=== PATIENT | male | born 1935 | race Caucasian/White ===

== ENCOUNTER → 2016-07-13 | Outpatient (CLI) | payer OTHER ==
[~2016-07-13] MED LIST: AMLO-110 PO; ATOR10TA88 PO; LEVO-366 PO; METO100T14 PO; POTA-335 PO; VITAMIN D PO
[2016-07-13 12:09] LABS: HEMATOCRIT 45.6 % (42-52); MEAN CORPUSCULAR HEMOGLOBIN 34.6 pg (25-34); MEAN CORPUSCULAR HGB CONC 36.4 g/dl (32-36); MEAN PLATELET VOLUME 10.3 fL (7.4-10.4); PLATELET COUNT 294 K/uL (130-400); WHITE BLOOD COUNT 10.36 K/uL (4.8-10.8)
[2016-07-13 12:20] LABS: ALT/SGPT 18 U/L (12-78); BLOOD UREA NITROGEN 35 mg/dl (7-18); BUN/CREATININE RATIO 20.7 (10-20); CALCIUM 8.9 mg/dl (8.5-10.1); CARBON DIOXIDE 27 mmol/L (21-32); CHLORIDE 97 mmol/L (98-107); CHOLESTEROL 138 mg/dl (0-200); GLUCOSE 116 mg/dl (70-99); POTASSIUM 5.3 mmol/L (3.5-5.1); SODIUM 129 mmol/L (136-145); TRIGLYCERIDES 173 mg/dl (0-150); VERY LOW DENSITY LIPOPROT CALC 35 mg/dl
[2016-07-13 12:23] LABS: ALKALINE PHOSPHATASE 87 U/L (45-117); AST/SGOT 11 U/L (15-37); CHOLESTEROL/HDL RATIO 3.3; HDL CHOLESTEROL 42 mg/dl; LDL CHOLESTEROL CALCULATED 61 mg/dl
== END | disposition home or self-care (01) ==
LOC: C.LAB1850 10:29
PROVIDERS: ATTEND Family Medicine
DX: E78.5 Hyperlipidemia, unspecified (principal); I10 Essential (primary) hypertension; I51.9 Heart disease, unspecified; R60.0 Localized edema; N40.0 Benign prostatic hyperplasia without lower urinary tract symptoms

== ENCOUNTER → 2016-07-23 | Outpatient (CLI) | payer OTHER ==
[2016-07-23 12:14] LABS: BLOOD UREA NITROGEN 30 mg/dl (7-18); BUN/CREATININE RATIO 18.9 (10-20); CALCIUM 9.1 mg/dl (8.5-10.1); CARBON DIOXIDE 22 mmol/L (21-32); CHLORIDE 101 mmol/L (98-107); GLUCOSE 127 mg/dl (70-99); MAGNESIUM 1.9 mg/dl (1.8-2.4); POTASSIUM 4.8 mmol/L (3.5-5.1); SODIUM 135 mmol/L (136-145)
[2016-07-23 12:15] LABS: PHOSPHORUS 3.1 mg/dl (2.5-4.9)
== END | disposition home or self-care (01) ==
LOC: C.LAB1850 10:22
PROVIDERS: ATTEND Family Medicine
DX: N28.9 Disorder of kidney and ureter, unspecified (principal); E87.5 Hyperkalemia

== ENCOUNTER → 2016-12-03 | Outpatient (CLI) | payer OTHER | END | disposition home or self-care (01) | LOC: C.PATHSPEC 11:02 | PROVIDERS: ATTEND Urology | DX: R31.9 Hematuria, unspecified (principal) ==

== ENCOUNTER → 2016-12-23 | Outpatient (CLI) | payer OTHER ==
--- NOTE | 2016-12-23 15:35 | DIAGNOSTIC IMAGING REPORT ---
CHEST 2 VIEWS ROUTINE CLINICAL HISTORY: PRODUCTIVE COUGH dyspnea COMPARISON STUDY: 2015 FINDINGS: Mild stable cardia megaly. Mild emphysematous change. Several stable calcified granulomas of the upper lungs. Potential small left infrahilar infiltrate. IMPRESSION: Small left infrahilar infiltrate. Chronic change. The above report was generated using voice recognition software. It may contain grammatical, syntax or spelling errors. Electronically signed by: Hitesh Young M.D. 12/23/2016 3:34 PM Dictated Date/Time: 12/23/2016 3:33 PM
[2016-12-23 16:57] LABS: BASO % 0.1 %; BASO ABS # 0.01 K/uL (0-0.2); COMPLETE YES; EOS % 1.3 %; HEMATOCRIT 44.8 % (42-52); IG% 0.3 %; LYMPH % 15.4 %; MEAN CELL VOLUME 94.5 fL (80-100); MEAN CORPUSCULAR HEMOGLOBIN 32.7 pg (25-34); MEAN CORPUSCULAR HGB CONC 34.6 g/dl (32-36); MEAN PLATELET VOLUME 10.1 fL (7.4-10.4); MONO % 9.3 %; NEUT % 73.6 %; PLATELET COUNT 358 K/uL (130-400); RED BLOOD COUNT 4.74 M/uL (4.7-6.1); WHITE BLOOD COUNT 10.41 K/uL (4.8-10.8)
[2016-12-23 17:06] LABS: ALT/SGPT 19 U/L (12-78); BLOOD UREA NITROGEN 31 mg/dl (7-18); BUN/CREATININE RATIO 17.1 (10-20); CARBON DIOXIDE 26 mmol/L (21-32); CHLORIDE 101 mmol/L (98-107); GLUCOSE 111 mg/dl (70-99); POTASSIUM 4.9 mmol/L (3.5-5.1); SODIUM 133 mmol/L (136-145)
[2016-12-23 17:17] LABS: ALKALINE PHOSPHATASE 79 U/L (45-117); AST/SGOT 13 U/L (15-37)
== END | disposition home or self-care (01) ==
LOC: C.RADBC 15:17
PROVIDERS: ATTEND Nurse Practitioner Adult Health
DX: Z00.00 Encounter for general adult medical examination without abnormal findings (principal); R05 Cough

== ENCOUNTER → 2017-01-08 | Outpatient (CLI) | payer OTHER ==
[2017-01-08 17:04] LABS: BLOOD UREA NITROGEN 30 mg/dl (7-18); CALCIUM 8.8 mg/dl (8.5-10.1); CARBON DIOXIDE 27 mmol/L (21-32); CHLORIDE 102 mmol/L (98-107); GLUCOSE 98 mg/dl (70-99); POTASSIUM 4.8 mmol/L (3.5-5.1); SODIUM 134 mmol/L (136-145)
== END | disposition home or self-care (01) ==
LOC: C.LABBC 13:55
PROVIDERS: ATTEND Nurse Practitioner Adult Health
DX: R79.89 Other specified abnormal findings of blood chemistry (principal)

== ENCOUNTER → 2017-01-11 | Outpatient (CLI) | payer OTHER ==
--- NOTE | 2017-01-11 11:07 | DIAGNOSTIC IMAGING REPORT ---
CT SCAN OF THE ABDOMEN AND PELVIS WITHOUT CONTRAST CLINICAL HISTORY: SACROCOCCYGEAL DISORDERS, LESION OF SCIATIC NERVE HEMATURIA. NEPHROLITHIASIS. History of right nephrectomy. COMPARISON STUDY: 10/08/2009 TECHNIQUE: CT scan of the abdomen and pelvis was performed from the lung bases to the proximal femurs. Images are reviewed in the axial, sagittal, and coronal planes. IV contrast was not administered for this examination. A dose lowering technique was utilized adhering to the principles of ALARA. CT DOSE: 1059.41 mGycm FINDINGS: Lower chest: There is bibasal atelectasis. There is a partially visualized 7 mm left lower lobe pulmonary nodule. This measured 6 mm in September 2009. This slow growth strongly favors a benign lesion. Liver: The unenhanced liver is normal in size, contour, and attenuation. There is no intrahepatic biliary ductal dilatation. Gallbladder: Unremarkable. Spleen: Normal in size and attenuation. Pancreas: Unremarkable. Adrenal glands: Unremarkable. Kidneys: The right kidney is surgically absent. There is a stable right lateral abdominal wall hernia. Bowel: There are no transition zones to indicate bowel obstruction. There is no acute diverticulitis. There are scattered colonic diverticula present. The appendix appears normal. There is focal sigmoid wall thickening versus a focal contraction. Please correlate with any history of recent endoscopy. Peritoneum: There is no intraperitoneal free air or abdominal ascites. There is a small fat-containing left inguinal hernia. Vasculature: The abdominal aorta is normal in course and caliber. Adenopathy: There is a stable borderline enlarged left common femoral lymph node. Pelvic viscera: The prostate is enlarged measuring 62 mm. There are multiple bladder diverticula. There is mild bladder wall thickening. Skeletal structures: Postsurgical changes involve the left hip. There is partial SI joint ankylosis. There is ankylosis of the lumbar thoracic spine. IMPRESSION: 1. Surgically absent right kidney 2. No evidence of bowel obstruction. No evidence of free air 3. Normal appendix 4. Prostate enlargement 5. Multiple small bladder diverticula. Mild bladder wall thickening 6. Mild sigmoid wall thickening versus a focal contraction 7. 7 mm left lower lobe pulmonary nodule, likely benign 8. Possible ankylosing spondylitis Electronically signed by: Adarsh Alford M.D. 01/11/2017 11:05 AM Dictated Date/Time: 01/11/2017 10:44 AM
== END | disposition home or self-care (01) ==
LOC: C.CTS 10:15
PROVIDERS: ATTEND Urology
DX: N20.0 Calculus of kidney (principal); R31.9 Hematuria, unspecified; Z90.5 Acquired absence of kidney; N40.0 Benign prostatic hyperplasia without lower urinary tract symptoms; N32.3 Diverticulum of bladder; R91.1 Solitary pulmonary nodule

== ENCOUNTER → 2017-08-03 | Outpatient (CLI) | payer OTHER ==
[~2017-08-03] MED LIST changes: +ATOR10TA82 PO; -ATOR10TA88 PO
[2017-08-03 13:50] LABS: ALT/SGPT 19 U/L (12-78); BLOOD UREA NITROGEN 27 mg/dl (7-18); CALCIUM 8.8 mg/dl (8.5-10.1); CARBON DIOXIDE 26 mmol/L (21-32); CREATININE 1.67 mg/dl (0.60-1.40); GLUCOSE 123 mg/dl (70-99); POTASSIUM 4.9 mmol/L (3.5-5.1); SODIUM 133 mmol/L (136-145)
[2017-08-03 13:53] LABS: CHOLESTEROL 133 mg/dl (0-200); LDL CHOLESTEROL CALCULATED 56 mg/dl
== END | disposition home or self-care (01) ==
LOC: C.LABBC 09:27
PROVIDERS: ATTEND Family Medicine
DX: E78.5 Hyperlipidemia, unspecified (principal); I10 Essential (primary) hypertension; E87.1 Hypo-osmolality and hyponatremia

== ENCOUNTER 2017-12-13 07:47 | Inpatient (IN) | payer OTHER ==
[~2017-12-13] VITALS: Ht 177.8 cm; Wt 96.6 kg
[~2017-12-13 07:47] MED LIST changes: -AMLO-110 PO; +AMLO5TAB3 PO
[2017-12-13] MEDS ORDERED: SODIUM CHLORIDE 0.9% 1000ML 1,000 ML IV STA (08:22)
[2017-12-13 08:36] LABS: BASO % 0.1 %; BASO ABS # 0.01 K/uL (0-0.2); EOS % 0.8 %; HEMATOCRIT 38.6 % (42-52); HEMOGLOBIN 13.4 g/dL (14.0-18.0); IG# 0.05 K/uL (0.00-0.02); LYMPH % 8.6 %; LYMPH ABS # 1.05 K/uL (1.2-3.4); MEAN CELL VOLUME 90.8 fL (80-100); MEAN CORPUSCULAR HEMOGLOBIN 31.5 pg (25-34); MEAN CORPUSCULAR HGB CONC 34.7 g/dl (32-36); MEAN PLATELET VOLUME 9.7 fL (7.4-10.4); MONO ABS # 0.49 K/uL (0.11-0.59); NEUT % 86.1 %; NEUT ABS # 10.51 K/uL (1.4-6.5); PLATELET COUNT 273 K/uL (130-400); RED CELL DISTRIBUTION WIDTH CV 13.9 % (11.5-14.5); RED CELL DISTRIBUTION WIDTH SD 45.8 fL (36.4-46.3); WHITE BLOOD COUNT 12.21 K/uL (4.8-10.8)
[2017-12-13] MEDS ORDERED: AMLO10TA2 PO (08:39)
[2017-12-13] MEDS ORDERED: SPIR25TA PO (08:39)
[2017-12-13] MEDS ORDERED: CHOL1000 PO (08:39)
[2017-12-13 08:45] LABS: INR 1.2 (0.9-1.1); PTT PATIENT 30.9 SECONDS (21.0-31.0)
--- NOTE | 2017-12-13 08:58 | DIAGNOSTIC IMAGING REPORT ---
ABD/PELVIS NO IV OR ORAL CONT CT DOSE: 1399.78 mGy.cm HISTORY: Pain r/o sbo TECHNIQUE: Multiaxial CT images of the abdomen and pelvis were performed without contrast. A dose lowering technique was utilized adhering to the principles of ALARA. COMPARISON STUDY: 01/11/2017 FINDINGS: Chronic bibasilar pleural thickening. Several old basilar rib fractures. Configuration of liver is unremarkable. Gallbladder is negative for distention. There has been a right nephrectomy. Interval development of mild left hydroureteronephrosis. Considerable bladder distention. This appearance is consistent with that of bladder on obstruction. Moderate rectal fecal impaction. Mild prosthetic enlargement. Nonobstructive bowel pattern. Mild nonobstructive ileus. Degenerative changes as well as findings of ankylosing spondylitis involving the bony structures. Patient is status post left hip pinning. IMPRESSION: 1. Marked bladder distention consistent with bladder outlet obstruction. 2. Mild left hydroureteronephrosis apparently secondary to the bladder distention. 3. Fecal impaction of the rectum and low sigmoid. 4. Operative changes consistent with a prior right nephrectomy . 5. Mild nonobstructive ileus. The above report was generated using voice recognition software. It may contain grammatical, syntax or spelling errors. Electronically signed by: Hitesh Young M.D. 12/13/2017 8:57 AM Dictated Date/Time: 12/13/2017 8:52 AM
--- NOTE | 2017-12-13 09:01 | DIAGNOSTIC IMAGING REPORT ---
CHEST ONE VIEW PORTABLE CLINICAL HISTORY: EVALUATE ALTERED MENTAL STATUS/WEAKNESS COMPARISON STUDY: 12/23/2016, 11/22/2015. The FINDINGS: Moderate cardiomegaly. Interstitial prominence left base components of which are chronic with mild superimposed inflammatory process. Mildly progressive fullness of the superior mediastinum at the thoracic inlet. This may be secondary to the AP portable technique although CT of the chest is suggested. IMPRESSION: 1. Moderate cardiomegaly. 2. Minimal interstitial infiltrate left base superimposed upon chronic interstitial change. 3. Slightly progressive superior mediastinal fullness. Although potentially technical, CT of chest recommended to exclude developing severe mediastinal adenopathy versus substernal thyroid. 4. Unchanging nodularity left upper lung. The above report was generated using voice recognition software. It may contain grammatical, syntax or spelling errors. Electronically signed by: Hitesh Young M.D. 12/13/2017 8:59 AM Dictated Date/Time: 12/13/2017 8:57 AM
[2017-12-13 09:04] LABS: ALBUMIN 3.5 gm/dl (3.4-5.0); CREATININE 12.6 mg/dl (0.60-1.40); POTASSIUM 6.8 mmol/L (3.5-5.1); TOTAL PROTEIN 7.3 gm/dl (6.4-8.2)
[2017-12-13] MEDS ORDERED: SODIUM BICARB 8.4% INJ 50 MEQ/50 ML SYR IV STA (10:03)
[2017-12-13] MEDS ORDERED: CALCIUM GLUCONATE 10% 10 ML VIAL IV STA (10:03)
[2017-12-13] MEDS ORDERED: SODIUM POLYST. SULF SUSP 15G/60ML PO STA (10:03)
[2017-12-13] MEDS ORDERED: ACETAMINOPHEN 325 MG TAB PO PRN (10:45)
[2017-12-13] MEDS ORDERED: POLYETHYLENE (MIRALAX) 17 GM PACK PO PRN (10:45)
[2017-12-13] MEDS ORDERED: MAGNESIUM HYDROXIDE SUSP 30 ML UDC PO PRN (10:45)
[2017-12-13] MEDS ORDERED: ALUMINUM/MAGNESIUM/SIMETH (MAALOX MAX) 30 ML UDC PO PRN (10:45)
[2017-12-13] MEDS ORDERED: ONDANSETRON INJ 2 MG/ML 2 ML VIAL IV PRN (10:45)
--- NOTE | 2017-12-13 11:19 | History and Physical ---
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 The patient states he has felt generally weaker and more fatigued than usual this last week and in fact has had 2 recent falls due to leg weakness. He denies any loss of consciousness, chest, pain, or shortness of breath with these falls and denies any head trauma. The patient notes that his appetite has been poor lately, only eating a few bites at a time. He also notes intermittent nausea but denies vomiting. He has had intermittent lower abdominal pain that is a 5/10 aching pain when it occurs, although he denies any pain currently. He notes he has had hematuria for the last week but denies dysuria. He states he has had hematuria before. Per outpatient records he had refused cystoscopy at that time. The patient states that initially he seemed to be urinating more frequently than normal, but in the last few days he has been urinating less. The patient denies fevers, chills, sweats, chest pain, palpitations, claudication, cough, wheezing, shortness of breath, vomiting, dysuria, urinary retention, paralysis, focal motor weakness, numbness and tingling. 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) Bilateral cataract surgery Left hip repair s/p fracture Family History Noncontributory secondary to age Social History Smoking Status: Former Smoker (quit 50 years ago) Smokeless Tobacco Use: No Alcohol Use: none Drug Use: none Marital Status: Housing status: lives with significant other Occupational Status: retired Immunizations History of Influenza Vaccine: Yes Influenza Vaccine Date: Feb 18, 2009 History of Tetanus Vaccine?: Yes History of Pneumococcal: No History of Hepatitis B Vaccine: Unknown Allergies Coded Allergies: Penicillins (Verified Allergy, Severe, HIVES, 12/13/17) Sulfa Drugs (Verified Allergy, Mild, rash, 12/13/17) Sulfamethoxazole (Verified Allergy, Mild, rash, 12/13/17) Trimethoprim (Verified Allergy, Mild, rash, 12/13/17) Gentamicin (Verified Allergy, Unknown, RASH, 12/13/17) Home Medications Scheduled Amlodipine Besylate (Norvasc), 10 MG PO DAILY Atorvastatin (Lipitor), 10 MG PO HS Cholecalciferol (Vitamin D3), 1,000 UNITS PO DAILY Metoprolol Tartrate (Lopressor) (Lopressor), 100 MG PO BID Spironolactone (Aldactone), 25 MG PO DAILY Review of Systems Constitutional: +Weakness, fatigue. No fever, No chills, No sweats Eyes: No worsening of vision, No eye pain, No diplopia ENT: No hearing loss, No nasal symptoms, No trouble swallowing Respiratory: No cough, No wheezing, No shortness of breath Cardiovascular: No chest pain, No claudication, No palpitations Abdomen: +Intermittent 5/10 aching lower abdominal pain, nausea. No vomiting Musculoskeletal: No joint pain, No muscle pain, No swelling Genitourinary - Male: +Hematuria, urinary incontinence (chronic) No dysuria, No urinary retention Neurologic: No paralysis, No weakness, No numbness/tingling Integumentary: No rash, No itch, No color change Physical Exam Vital Signs Date Time Temp Pulse Resp B/P (MAP) Pulse Ox O2 Delivery O2 Flow Rate FiO2 12/13/17 10:54 61 24 147/72 93 Room Air 12/13/17 09:34 78 19 140/64 94 Room Air 12/13/17 08:05 60 12/13/17 08:00 36.9 63 20 154/81 95 Room Air General appearance: Well-developed, well-nourished, no apparent distress Head: Normocephalic, atraumatic Eyes: Normal inspection, PERRL, EOMI ENT: Normal ENT inspection, hearing grossly normal, pharynx normal Neck: Supple, no JVD, trachea midline Respiratory/Chest: +Decreased breath sounds. Lungs clear to auscultation, no respiratory distress Cardiovascular: Regular rate & rhythm, no gallop, no murmur Abdomen/GI: Normal bowel sounds, non-tender, soft Extremities/Musculoskeletal: +RLE greater than LLE due to defect. 2+ pitting edema LLE, 1+ pitting edema RLE. No calf tenderness Neurological/Psych: Alert, normal mood/affect, oriented x 3 Skin: Normal color, warm/dry, no rash Diagnostics Laboratory Results Results Past 24 Hours Test 12/13/17 08:15 12/13/17 09:25 Range/Units White Blood Count 12.21 4.8-10.8 K/uL Red Blood Count 4.25 4.7-6.1 M/uL Hemoglobin 13.4 14.0-18.0 g/dL Hematocrit 38.6 42-52 % Mean Corpuscular Volume 90.8 80-100 fL Mean Corpuscular Hemoglobin 31.5 25-34 pg Mean Corpuscular Hemoglobin Concent 34.7 32-36 g/dl Platelet Count 273 130-400 K/uL Mean Platelet Volume 9.7 7.4-10.4 fL Neutrophils (%) (Auto) 86.1 % Lymphocytes (%) (Auto) 8.6 % Monocytes (%) (Auto) 4.0 % Eosinophils (%) (Auto) 0.8 % Basophils (%) (Auto) 0.1 % Neutrophils # (Auto) 10.51 1.4-6.5 K/uL Lymphocytes # (Auto) 1.05 1.2-3.4 K/uL Monocytes # (Auto) 0.49 0.11-0.59 K/uL Eosinophils # (Auto) 0.10 0-0.5 K/uL Basophils # (Auto) 0.01 0-0.2 K/uL RDW Standard Deviation 45.8 36.4-46.3 fL RDW Coefficient of Variation 13.9 11.5-14.5 % Immature Granulocyte % (Auto) 0.4 % Immature Granulocyte # (Auto) 0.05 0.00-0.02 K/uL Prothrombin Time 12.4 9.0-12.0 SECONDS Prothromb Time International Ratio 1.2 0.9-1.1 Activated Partial Thromboplast Time 30.9 21.0-31.0 SECONDS Partial Thromboplastin Ratio 1.2 Sodium Level 126 136-145 mmol/L Potassium Level 6.8 3.5-5.1 mmol/L Chloride Level 97 98-107 mmol/L Carbon Dioxide Level 16 21-32 mmol/L Anion Gap 13.0 3-11 mmol/L Blood Urea Nitrogen 137 7-18 mg/dl Creatinine 12.60 0.60-1.40 mg/dl Est Creatinine Clear Calc Drug Dose 2.4 ml/min Estimated GFR () 3.8 Estimated GFR (Non- 3.3 BUN/Creatinine Ratio 10.8 10-20 Random Glucose 97 70-99 mg/dl Calcium Level 8.0 8.5-10.1 mg/dl Magnesium Level 2.4 1.8-2.4 mg/dl Total Bilirubin 0.6 0.2-1 mg/dl Direct Bilirubin 0.2 0-0.2 mg/dl Aspartate Amino Transf (AST/SGOT) 10 15-37 U/L Alanine Aminotransferase (ALT/SGPT) 15 12-78 U/L Alkaline Phosphatase 77 45-117 U/L Total Creatine Kinase 122 39-308 U/L Creatine Kinase MB 5.0 0.5-3.6 ng/ml Creatine Kinase MB Ratio 4.1 0-3.0 Troponin I 0.016 0-0.045 ng/ml Total Protein 7.3 6.4-8.2 gm/dl Albumin 3.5 3.4-5.0 gm/dl Lipase 278 73-393 U/L Thyroid Stimulating Hormone (TSH) 1.220 0.300-4.500 uIu/ml Urine Color YELLOW Urine Appearance CLOUDY CLEAR Urine pH 5.5 4.5-7.5 Urine Specific [place] 1.015 1.000-1.030 Urine Protein 2+ NEG Urine Glucose (UA) NEG NEG Urine Ketones NEG NEG Urine Occult Blood 3+ NEG Urine Nitrite NEG NEG Urine Bilirubin NEG NEG Urine Urobilinogen NEG NEG Urine Leukocyte Esterase MODERATE NEG Urine WBC (Auto) >30 0-5 /hpf Urine RBC (Auto) 0-4 0-4 /hpf Urine Hyaline Casts (Auto) 0 0-5 /lpf Urine Epithelial Cells (Auto) 0-5 0-5 /lpf Urine Bacteria (Auto) NEG NEG Urine Yeast (Auto) NONE PRSENT Microbiology Results 12/13/17 Urine Culture, Received Pending Diagnostic Radiology Reviewed the following studies and agree with interpretation as follows: CHEST ONE VIEW PORTABLE CLINICAL HISTORY: EVALUATE ALTERED MENTAL STATUS/WEAKNESS COMPARISON STUDY: 12/23/2016, 11/22/2015. The FINDINGS: Moderate cardiomegaly. Interstitial prominence left base components of which are chronic with mild superimposed inflammatory process. Mildly progressive fullness of the superior mediastinum at the thoracic inlet. This may be secondary to the AP portable technique although CT of the chest is suggested. IMPRESSION: 1. Moderate cardiomegaly. 2. Minimal interstitial infiltrate left base superimposed upon chronic interstitial change. 3. Slightly progressive superior mediastinal fullness. Although potentially technical, CT of chest recommended to exclude developing severe mediastinal adenopathy versus substernal thyroid. 4. Unchanging nodularity left upper lung. ABD/PELVIS NO IV OR ORAL CONT CT DOSE: 1399.78 mGy.cm HISTORY: Pain r/o sbo TECHNIQUE: Multiaxial CT images of the abdomen and pelvis were performed without contrast. A dose lowering technique was utilized adhering to the principles of ALARA. COMPARISON STUDY: 01/11/2017 FINDINGS: Chronic bibasilar pleural thickening. Several old basilar rib fractures. Configuration of liver is unremarkable. Gallbladder is negative for distention. There has been a right nephrectomy. Interval development of mild left hydroureteronephrosis. Considerable bladder distention. This appearance is consistent with that of bladder on obstruction. Moderate rectal fecal impaction. Mild prosthetic enlargement. Nonobstructive bowel pattern. Mild nonobstructive ileus. Degenerative changes as well as findings of ankylosing spondylitis involving the bony structures. Patient is status post left hip pinning. IMPRESSION: 1. Marked bladder distention consistent with bladder outlet obstruction. 2. Mild left hydroureteronephrosis apparently secondary to the bladder distention. 3. Fecal impaction of the rectum and low sigmoid. 4. Operative changes consistent with a prior right nephrectomy . 5. Mild nonobstructive ileus. 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 Pt afebrile, VSS on arrival. CT of abdomen/pelvis shows marked bladder distention consistent w/bladder outlet obstruction, mild hydronephrosis, fecal impaction of rectum and low sigmoid, and mild nonobstructive ileus. CXR shows minimal interstitial infiltrate of left base superimposed on chronic interstitial change, slightly progressive superior mediastinal fullness and unchanged nodularity of left upper lobe. EKG no ischemic changes. Creatinine significantly elevated above baseline at 12.6, BUN 137. Potassium 6.8. Sodium 126. UA positive for 3+ blood. Acute renal failure on CKD stage III, s/p right nephrectomy, bladder outlet obstruction w/urinary retention -Admit to telemetry -Pt received calcium gluconate, sodium bicarb, and Kayexalate 15 gm PO in ED -Cathed for 2.9L urine in ED, Kaur then removed -Repeat PRP now stat -ARF likely secondary to bladder outlet obstruction and hydro -Consult nephrology, appreciate recs: Spoke with Dr. Dalton. Recheck PRP now and then based on results can decided if need to trend throughout the day or not. -Consult urology, appreciate recs: Spoke with Leah Velazquez. Re-insert Kaur. -Restart Kaur -Check PSA HTN, HLD--stable -Continue Norvasc 10 mg PO qd, Lopressor 100 mg PO BID, and Lipitor 10 mg PO qd Diastolic dysfunction, peripheral edema--edema currently around baseline -Hold spironolactone for now given ARF BPH, hematuria -Consult urology as above -Hgb 13.4 on admission, baseline 15-16 DVT prophylaxis -Hold chemical ppx for now given hematuria -AIYANA james and SCDs Code Status -Level V, DO NOT RESUSCITATE Dispo -Lives at home w/, uses walker and cane to walk -2 recent falls due to weakness, PT/OT evaluate and treat -Case management consulted for discharge planning Resuscitation Status VTE Prophylaxis Will order VTE Prophylaxis: Yes
--- NOTE | 2017-12-13 11:34 | EMERGENCY ROOM VISIT NOTE ---
History Report prepared by Zena: Roverto Hanna Under the Supervision of: Dr. Jona Mccormick D.O. First contact with patient: 08:09 Chief Complaint: ILLNESS Stated Complaint: WEAKNESS/HEMATURIA History of Present Illness The patient is an 82 year old male who presents to the Emergency Room with complaints of persistent generalized weakness that the patient has been experiencing for the past week. The patient describes his symptoms as feeling "washed out." He also notes that he has been experiencing hematuria for the same time frame. The patient only does have 1 kidney. The patient's at bedside notes that the patient has fallen twice in the past week and that he is took weak to stand. He has not hit his head. Source of History: patient Onset: Past week Position: other (genitourinary) Quality: other (hematuria) Timing: other (persistent) Associated Symptoms: + weakness Note: Multiple falls Review of Systems See HPI for pertinent positives & negatives. A total of 10 systems reviewed and were otherwise negative. Past Medical & Surgical Medical Problems: (1) Acute renal failure (2) Hyperkalemia Hx of Hypertension Family History Omitted secondary to age. Social History Drug Use: none Marital Status: Housing Status: lives with significant other Occupation Status: retired Current/Historical Medications Scheduled Amlodipine Besylate (Norvasc), 10 MG PO DAILY Atorvastatin (Lipitor), 10 MG PO HS Cholecalciferol (Vitamin D3), 1,000 UNITS PO DAILY Metoprolol Tartrate (Lopressor) (Lopressor), 100 MG PO BID Spironolactone (Aldactone), 25 MG PO DAILY Allergies Coded Allergies: Penicillins (Verified Allergy, Severe, HIVES, 12/13/17) Sulfa Drugs (Verified Allergy, Mild, rash, 12/13/17) Sulfamethoxazole (Verified Allergy, Mild, rash, 12/13/17) Trimethoprim (Verified Allergy, Mild, rash, 12/13/17) Gentamicin (Verified Allergy, Unknown, RASH, 12/13/17) Physical Exam Vital Signs Date Time Temp Pulse Resp B/P (MAP) Pulse Ox O2 Delivery O2 Flow Rate FiO2 12/13/17 11:21 72 23 161/77 92 Room Air 12/13/17 10:54 61 24 147/72 93 Room Air 12/13/17 09:34 78 19 140/64 94 Room Air 12/13/17 08:05 60 12/13/17 08:00 36.9 63 20 154/81 95 Room Air Physical Exam CONSTITUTIONAL/VITAL SIGNS: Reviewed / noted above. GENERAL: Non-toxic in appearance. INTEGUMENTARY: Warm, dry, and [place]. HEAD: Normocephalic. EYES: without scleral icterus or trauma. ENT/OROPHARYNX: clear and moist. LYMPHADENOPATHY/NECK: Is supple without lymphadenopathy or meningismus. RESPIRATORY: Lungs clear and equal. CARDIOVASCULAR: Regular rate and rhythm. GI/ABDOMEN: Soft and distended. Nontender. No organomegaly or pulsatile mass. No rebound or guarding. Normal bowel sounds. EXTREMITIES: Warm and well perfused. BACK: No CVA tenderness. NEUROLOGICAL: Intact without focal deficits. PSYCHIATRIC: normal affect. MUSCULOSKELETAL: Normally developed with good muscle tone. Medical Decision & Procedures ER Provider Diagnostic Interpretation: Radiology results as stated below per my review and radiologist interpretation: ABD/PELVIS NO IV OR ORAL CONT CT DOSE: 1399.78 mGy.cm HISTORY: Pain r/o sbo TECHNIQUE: Multiaxial CT images of the abdomen and pelvis were performed without contrast. A dose lowering technique was utilized adhering to the principles of ALARA. COMPARISON STUDY: 01/11/2017 FINDINGS: Chronic bibasilar pleural thickening. Several old basilar rib fractures. Configuration of liver is unremarkable. Gallbladder is negative for distention. There has been a right nephrectomy. Interval development of mild left hydroureteronephrosis. Considerable bladder distention. This appearance is consistent with that of bladder on obstruction. Moderate rectal fecal impaction. Mild prosthetic enlargement. Nonobstructive bowel pattern. Mild nonobstructive ileus. Degenerative changes as well as findings of ankylosing spondylitis involving the bony structures. Patient is status post left hip pinning. IMPRESSION: 1. Marked bladder distention consistent with bladder outlet obstruction. 2. Mild left hydroureteronephrosis apparently secondary to the bladder distention. 3. Fecal impaction of the rectum and low sigmoid. 4. Operative changes consistent with a prior right nephrectomy . 5. Mild nonobstructive ileus. The above report was generated using voice recognition software. It may contain grammatical, syntax or spelling errors. Electronically signed by: Hitesh Young M.D. 12/13/2017 8:57 AM Dictated Date/Time: 12/13/2017 8:52 AM CHEST ONE VIEW PORTABLE CLINICAL HISTORY: EVALUATE ALTERED MENTAL STATUS/WEAKNESS COMPARISON STUDY: 12/23/2016, 11/22/2015. The FINDINGS: Moderate cardiomegaly. Interstitial prominence left base components of which are chronic with mild superimposed inflammatory process. Mildly progressive fullness of the superior mediastinum at the thoracic inlet. This may be secondary to the AP portable technique although CT of the chest is suggested. IMPRESSION: 1. Moderate cardiomegaly. 2. Minimal interstitial infiltrate left base superimposed upon chronic interstitial change. 3. Slightly progressive superior mediastinal fullness. Although potentially technical, CT of chest recommended to exclude developing severe mediastinal adenopathy versus substernal thyroid. 4. Unchanging nodularity left upper lung. The above report was generated using voice recognition software. It may contain grammatical, syntax or spelling errors. Electronically signed by: Hitesh Young M.D. 12/13/2017 8:59 AM Dictated Date/Time: 12/13/2017 8:57 AM Laboratory Results 12/13/17 08:15 Red Blood Count 4.25, Mean Corpuscular Volume 90.8, Mean Corpuscular Hemoglobin 31.5, Mean Corpuscular Hemoglobin Concent 34.7, Mean Platelet Volume 9.7, Neutrophils (%) (Auto) 86.1, Lymphocytes (%) (Auto) 8.6, Monocytes (%) (Auto) 4.0, Eosinophils (%) (Auto) 0.8, Basophils (%) (Auto) 0.1, Neutrophils # (Auto) 10.51, Lymphocytes # (Auto) 1.05, Monocytes # (Auto) 0.49, Eosinophils # (Auto) 0.10, Basophils # (Auto) 0.01 Test 12/13/17 08:15 12/13/17 09:25 12/13/17 10:37 White Blood Count 12.21 K/uL (4.8-10.8) Red Blood Count 4.25 M/uL (4.7-6.1) Hemoglobin 13.4 g/dL (14.0-18.0) Hematocrit 38.6 % (42-52) Mean Corpuscular Volume 90.8 fL (80-100) Mean Corpuscular Hemoglobin 31.5 pg (25-34) Mean Corpuscular Hemoglobin Concent 34.7 g/dl (32-36) Platelet Count 273 K/uL (130-400) Mean Platelet Volume 9.7 fL (7.4-10.4) Neutrophils (%) (Auto) 86.1 % Lymphocytes (%) (Auto) 8.6 % Monocytes (%) (Auto) 4.0 % Eosinophils (%) (Auto) 0.8 % Basophils (%) (Auto) 0.1 % Neutrophils # (Auto) 10.51 K/uL (1.4-6.5) Lymphocytes # (Auto) 1.05 K/uL (1.2-3.4) Monocytes # (Auto) 0.49 K/uL (0.11-0.59) Eosinophils # (Auto) 0.10 K/uL (0-0.5) Basophils # (Auto) 0.01 K/uL (0-0.2) RDW Standard Deviation 45.8 fL (36.4-46.3) RDW Coefficient of Variation 13.9 % (11.5-14.5) Immature Granulocyte % (Auto) 0.4 % Immature Granulocyte # (Auto) 0.05 K/uL (0.00-0.02) Prothrombin Time 12.4 SECONDS (9.0-12.0) Prothromb Time International Ratio 1.2 (0.9-1.1) Activated Partial Thromboplast Time 30.9 SECONDS (21.0-31.0) Partial Thromboplastin Ratio 1.2 Est Creatinine Clear Calc Drug Dose 2.4 ml/min Magnesium Level 2.4 mg/dl (1.8-2.4) Total Bilirubin 0.6 mg/dl (0.2-1) Direct Bilirubin 0.2 mg/dl (0-0.2) Aspartate Amino Transf (AST/SGOT) 10 U/L (15-37) Alanine Aminotransferase (ALT/SGPT) 15 U/L (12-78) Alkaline Phosphatase 77 U/L (45-117) Total Creatine Kinase 122 U/L (39-308) Creatine Kinase MB 5.0 ng/ml (0.5-3.6) Creatine Kinase MB Ratio 4.1 (0-3.0) Troponin I 0.016 ng/ml (0-0.045) Total Protein 7.3 gm/dl (6.4-8.2) Albumin 3.5 gm/dl (3.4-5.0) Lipase 278 U/L (73-393) Thyroid Stimulating Hormone (TSH) 1.220 uIu/ml (0.300-4.500) Urine Color YELLOW Urine Appearance CLOUDY (CLEAR) Urine pH 5.5 (4.5-7.5) Urine Specific [place] 1.015 (1.000-1.030) Urine Protein 2+ (NEG) Urine Glucose (UA) NEG (NEG) Urine Ketones NEG (NEG) Urine Occult Blood 3+ (NEG) Urine Nitrite NEG (NEG) Urine Bilirubin NEG (NEG) Urine Urobilinogen NEG (NEG) Urine Leukocyte Esterase MODERATE (NEG) Urine WBC (Auto) >30 /hpf (0-5) Urine RBC (Auto) 0-4 /hpf (0-4) Urine Hyaline Casts (Auto) 0 /lpf (0-5) Urine Epithelial Cells (Auto) 0-5 /lpf (0-5) Urine Bacteria (Auto) NEG (NEG) Urine Yeast (Auto) (NONE PRSENT) Laboratory results as stated above per my review. Medications Administered Medications (Trade) Dose Ordered Sig/Simon Route Start Time Stop Time Status Last Admin Dose Admin Sodium Chloride 1,000 ml @ 999 mls/hr Q1H1M STAT IV 12/13/17 08:22 12/13/17 09:22 DC 12/13/17 08:22 999 MLS/HR Calcium Gluconate (Calcium Gluconate 10%) 1,000 mg NOW STAT IV 12/13/17 10:03 12/13/17 10:05 DC 12/13/17 10:52 1,000 MG Sodium Bicarbonate (Sodium Bicarbonate 8.4% Inj) 50 ml NOW STAT IV 12/13/17 10:03 12/13/17 10:05 DC 12/13/17 10:52 50 ML Sodium Polystyrene Sulfonate (Kayexalate Susp) 15 gm NOW STAT PO 12/13/17 10:03 12/13/17 10:05 DC 12/13/17 10:03 15 GM ECG Per My Interpretation Indication: weakness Rate (beats per minute): 62 Rhythm: normal sinus Findings: LAFB, RBBB Comparison ECG Date: 08/20/2011 Change: no significant change ED Course 0819: Previous medical records were reviewed. The patient was evaluated in room B11B. A complete history and physical examination was performed. 0942: I discussed the case with Dr. Glenis HANNA Hospitalist. She will evaluate for further treatment. Medical Decision Differential includes acute coronary syndrome, myocardial infarction, CVA, TIA, anemia, infection, pneumonia, UTI, pyelonephritis, poor nutrition, dehydration, electrolyte disturbance,hypoglycemia. This is an 82-year-old male who presents to the ED with a chief complaint of generalized weakness and fatigue as well as decreased appetite and some blood in his urine. The patient states that he has had the symptoms for about a week or so. He also has history of right nephrectomy. The patient on exam has some abdominal distention that he says is not normal for him. His last bowel movement was on Wednesday. Blood pressure was slightly elevated. His physical exam was otherwise unremarkable. His sodium was low at 126. Potassium was 6.8. His BUN was 137 and his creatinine is 12.6. Baseline creatinine is 1.67. CT scan of the abdomen pelvis reveals distended bladder with moderate left hydronephrosis concerning for a bladder outlet obstruction. A Kaur catheter was placed and drained 2.9 L of urine. EKG shows a normal sinus rhythm at a rate of 62 with a right bundle branch block and left anterior fascicular block. No segment change compared to previous one. The patient was treated with IV fluids, IV calcium gluconate, IV sodium bicarb and p.o. Kayexalate. The patient 's remained clinically stable during his ED stay. A Kaur catheter was placed. The patient will be seen by the hospitalist service for further inpatient evaluation. Blood Pressure Screening Patient's blood pressure: Elevated blood pressure Referred to hospitalist Consults Time Called: 0932 Consulting Physician: Dr. Glenis HANNA Hospitalist Returned Call: [phone] I discussed the case with Dr. Glenis HANNA Hospitalist. She will evaluate for further treatment. Impression Primary Impression: Bladder outflow obstruction Additional Impressions: Hyperkalemia Hyponatremia Acute renal failure Critical Care I have personally spent greater than 35 minutes of critical care time in the direct management of this patient. This includes bedside care, interpretation of diagnostic studies, and testing, discussion with consultants, patient, and family members, and other required patient management activities. This 35 minutes is in excess of all separately billable procedures. Scribe Attestation The scribe's documentation has been prepared under my direction and personally reviewed by me in its entirety. I confirm that the note above accurately reflects all work, treatment, procedures, and medical decision making performed by me. Departure Information Dispostion Being Evaluated By Hospitalist Referrals Elly Villafana MD (PCP) Patient Instructions My [facility] Problem Qualifiers Additional Impressions: Acute renal failure Acute renal failure type: unspecified Qualified Codes: N17.9 - Acute kidney failure, unspecified
--- NOTE | 2017-12-13 11:48 | Urology Consultation ---
History General Date of Service: Dec 13, 2017. Chief Complaint: gross hematuria, urinary retention Primary Care Physician: Elly Villafana MD Pt seen a urologist before?: Yes (Dr. Chavez) If yes, why?: BPH, gross hematuria History of Present Illness 82 yo male with a hx of BPH and right nephrectomy for atrophy presents to [facility] with c/o urinary retention and several weeks of gross hematuria with clots. The pt has seen Dr. Chavez in the past for BPH and gross hematuria. Previously declined evaluation for hematuria with cysto in January 2017. He was to f/u with Dr. Chavez as an outpatient today, but came to the ED instead as he was unable to void. Pt initially straight cathed for 2900ml tea colored urine. Noted to be in ARF with a Cr of 12.6. Baseline CKD stage III with a baseline Cr of 1.6. Noted to be hyperkalemic as well. He denies any f/c or n/v today. CT scan on admission showing a markedly distended bladder with mild left hydro. Imaging Imaging: CT Laboratory Last 24 Hours Test 12/13/17 08:15 12/13/17 09:25 12/13/17 11:29 White Blood Count 12.21 K/uL Red Blood Count 4.25 M/uL Hemoglobin 13.4 g/dL Hematocrit 38.6 % Mean Corpuscular Volume 90.8 fL Mean Corpuscular Hemoglobin 31.5 pg Mean Corpuscular Hemoglobin Concent 34.7 g/dl Platelet Count 273 K/uL Mean Platelet Volume 9.7 fL Neutrophils (%) (Auto) 86.1 % Lymphocytes (%) (Auto) 8.6 % Monocytes (%) (Auto) 4.0 % Eosinophils (%) (Auto) 0.8 % Basophils (%) (Auto) 0.1 % Neutrophils # (Auto) 10.51 K/uL Lymphocytes # (Auto) 1.05 K/uL Monocytes # (Auto) 0.49 K/uL Eosinophils # (Auto) 0.10 K/uL Basophils # (Auto) 0.01 K/uL RDW Standard Deviation 45.8 fL RDW Coefficient of Variation 13.9 % Immature Granulocyte % (Auto) 0.4 % Immature Granulocyte # (Auto) 0.05 K/uL Prothrombin Time 12.4 SECONDS Prothromb Time International Ratio 1.2 Activated Partial Thromboplast Time 30.9 SECONDS Partial Thromboplastin Ratio 1.2 Sodium Level 126 mmol/L Potassium Level 6.8 mmol/L Chloride Level 97 mmol/L Carbon Dioxide Level 16 mmol/L Anion Gap 13.0 mmol/L Blood Urea Nitrogen 137 mg/dl Creatinine 12.60 mg/dl Est Creatinine Clear Calc Drug Dose 2.4 ml/min Estimated GFR () 3.8 Estimated GFR (Non- 3.3 BUN/Creatinine Ratio 10.8 Random Glucose 97 mg/dl Calcium Level 8.0 mg/dl Magnesium Level 2.4 mg/dl Total Bilirubin 0.6 mg/dl Direct Bilirubin 0.2 mg/dl Aspartate Amino Transf (AST/SGOT) 10 U/L Alanine Aminotransferase (ALT/SGPT) 15 U/L Alkaline Phosphatase 77 U/L Total Creatine Kinase 122 U/L Creatine Kinase MB 5.0 ng/ml Creatine Kinase MB Ratio 4.1 Troponin I 0.016 ng/ml Total Protein 7.3 gm/dl Albumin 3.5 gm/dl Lipase 278 U/L Thyroid Stimulating Hormone (TSH) 1.220 uIu/ml Urine Color YELLOW Urine Appearance CLOUDY Urine pH 5.5 Urine Specific [place] 1.015 Urine Protein 2+ Urine Glucose (UA) NEG Urine Ketones NEG Urine Occult Blood 3+ Urine Nitrite NEG Urine Bilirubin NEG Urine Urobilinogen NEG Urine Leukocyte Esterase MODERATE Urine WBC (Auto) >30 /hpf Urine RBC (Auto) 0-4 /hpf Urine Hyaline Casts (Auto) 0 /lpf Urine Epithelial Cells (Auto) 0-5 /lpf Urine Bacteria (Auto) NEG Urine Yeast (Auto) Past History BPH, high cholesterol, hypertension, kidney stones, osteoarthritis, pneumonia, renal disease (stage III), other (hyperkalemia, hyponatremia) Past Surgical History: lithotripsy, nephrectomy, orthopedic surgery (hip surgery, meniscus repair, cataract surgery) Family History Non-contributory Social History Smoking: other (former smoker) Drug use: none Marital status: Housing status: lives with family Occupation status: retired Immunizations History of Influenza Vaccine: Yes Influenza Vaccine Date: Feb 18, 2009 History of Tetanus Vaccine?: Yes History of Pneumococcal: No History of Hepatitis B Vaccine: Unknown History of MDRO No Allergies Coded Allergies: Penicillins (Verified Allergy, Severe, HIVES, 12/13/17) Sulfa Drugs (Verified Allergy, Mild, rash, 12/13/17) Sulfamethoxazole (Verified Allergy, Mild, rash, 12/13/17) Trimethoprim (Verified Allergy, Mild, rash, 12/13/17) Gentamicin (Verified Allergy, Unknown, RASH, 12/13/17) Medications Home Medications: Home Meds and Scripts Medications Dose Route/Sig Max Daily Dose Days Date Category Vitamin D3 (Cholecalciferol) 1,000 Unit Tab 1,000 Units PO DAILY 90 12/13/17 Reported Aldactone (Spironolactone) 25 Mg Tab 25 Mg PO DAILY 12/13/17 Reported Norvasc (Amlodipine Besylate) 10 Mg Tab 10 Mg PO DAILY 12/13/17 Reported Lipitor (Atorvastatin Calcium) 10 Mg Tab 10 Mg PO HS 02/21/09 Reported Lopressor (Metoprolol Tartrate) 100 Mg Tab 100 Mg PO BID 02/21/09 Reported Inpatient Medications: Current Inpatient Medications Medications (Trade) Dose Ordered Sig/Simon Route Start Time Stop Time Status Last Admin Dose Admin Acetaminophen (Tylenol Tab) 650 mg Q4H PRN PO 12/13/17 10:45 01/12/18 10:44 Al Hydrox/Mg Hydrox/Simethicone (Maalox Max Susp) 15 ml Q4H PRN PO 12/13/17 10:45 01/12/18 10:44 Magnesium Hydroxide (Milk Of Magnesia Susp) 30 ml Q12H PRN PO 12/13/17 10:45 01/12/18 10:44 Ondansetron HCl (Zofran Inj) 4 mg Q6H PRN IV 12/13/17 10:45 01/12/18 10:44 Polyethylene (Miralax Powder Packet) 17 gm DAILY PRN PO 12/13/17 10:45 01/12/18 10:44 Amlodipine Besylate (Norvasc Tab) 10 mg DAILY PO 12/14/17 09:00 01/13/18 08:59 UNV Atorvastatin Calcium (Lipitor Tab) 10 mg HS PO 12/13/17 21:00 01/12/18 20:59 UNV Cholecalciferol (Vitamin D Tab) 1,000 inter.unit DAILY PO 12/14/17 09:00 01/13/18 08:59 UNV Metoprolol Tartrate (Lopressor Tab) 100 mg BID PO 12/13/17 21:00 01/12/18 20:59 UNV Review of Systems Review of Systems Constitutional: No fever, No chills Eyes: No double vision Neurological: No dizzy Endocrine: No excessive thirst Gastrointestinal: No abdominal pain, No nausea, No vomiting Cardiovascular: No chest pain Respiratory: No shortness of breath Skin: No rash Musculoskeletal: + arthritis Male : + urinary retention, + blood in urine Physical Exam Vital Signs: Vital Signs Past 12 Hours Date Time Temp Pulse Resp B/P (MAP) Pulse Ox O2 Delivery O2 Flow Rate FiO2 12/13/17 11:21 72 23 161/77 92 Room Air 12/13/17 10:54 61 24 147/72 93 Room Air 12/13/17 09:34 78 19 140/64 94 Room Air 12/13/17 08:05 60 12/13/17 08:00 36.9 63 20 154/81 95 Room Air Physical Exam: General Appearance: no apparent distress, + obese Eyes: bilateral eyes normal inspection ENT: hearing grossly normal Neck: no JVD Respiratory/Chest: no respiratory distress, no accessory muscle use Cardiovascular: no JVD Extremities: normal inspection Neurologic/Psychiatric: alert, normal mood/affect, oriented x 3 Skin: normal color Assessment & Plan Assessment & Plan Urinary retention, HERNANDEZ, BPH, gross hematuria, ARF UR secondary to HERNANDEZ and possible clot retention Will replace powell catheter today with a 22Fr 3-way coude powell d/t recent gross hematuria. Cap inlet, and plan for hand irrigation qshift and PRN. Plan to leave catheter in place for 10 days. Outpatient trial of void at that time. Continue to monitor renal function. ARF likely secondary to UR. Culture pending. Will send a cytology. Will start him on finasteride and Flomax. Monitor for orthostasis post Flomax administration. Orthostatic BPs ordered. Recommend cysto as an outpatient for further evaluation of BPH and gross hematuria. Thanks for the consult. Will continue to follow along with primary service.
[2017-12-13 12:13] LABS: CALCIUM 7.9 mg/dl (8.5-10.1); CREATININE 10.8 mg/dl (0.60-1.40); POTASSIUM 6.8 mmol/L (3.5-5.1)
[2017-12-13 12:53] VITALS: BP 154/72; PULSE 72; TEMP 36.4; O2SAT 90
[2017-12-13 13:04] VITALS: BP 154/72; PULSE 72; TEMP 36.4; Ht 177.8 cm; Wt 96.6 kg
[2017-12-13] MEDS ORDERED: LIDOCAINE HCL 2% JELLY 30 ML TUBE ONE (13:52)
[2017-12-13] MEDS ORDERED: SODIUM POLYST. SULF SUSP 15G/60ML PO ONE (14:15)
[2017-12-13 15:13] VITALS: BP 148/72; PULSE 72; TEMP 36.4; O2SAT 92
--- NOTE | 2017-12-13 15:41 | Progress Note ---
Progress Note Date of Service Dec 13, 2017. Progress Note Contacted by nursing staff. Unable to place powell catheter. I attempted to place a 22 Fr coude 3-way powell catheter, but met resistance in the urethra. ? stricture. However, I was able to easily place a 16Fr powell for 2000ml clear yellow urine. Will plan to leave powell in place for at least 10 days. Fortunately his hematuria has resolved making the smaller catheter an acceptable alternative. Will continue to follow along with primary service.
--- NOTE | 2017-12-13 16:26 | Nephrology Consultation ---
Nephrology Consultation Date & Providers Date of Consultation: Dec 13, 2017. Primary Care Provider: Elly Villafana MD Referring Provider: Reason for Consultation Evaluation management for acute kidney injury, hyperkalemia and metabolic acidosis. History of Present Illness Mr. 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 Electronic medical records including labs and imaging are reviewed in detail during patient's visit. Patient's family including his daughter Sammi and Susanna Pappas was at bedside during the visit. Cristopher presented to ED this morning with more than a week history of generalized weakness and hematuria and had 2 falls at home because of leg weakness. On admission he was found to have acute kidney injury, hyperkalemia and metabolic acidosis. CT abdomen pelvis without IV contrast showed bladder outlet obstruction with left-sided hydroureter with history right nephrectomy before. Had Kaur catheter placed with almost 3 liters of urine output. Overall he feels weak and tired however denies any shortness of breath or chest pain. Has not been taking any NSAIDs at home. Was on spironolactone 25 milligram at home which has been on hold. He received 1 liter of IV bolus seen 80. Blood pressure has been stable. EKG in hospital with no acute ST-T changes. Initially Cr 12.4, BUN 127, potassium was 6.8, sodium 126, bicarb 16 He received 15 gm Kayexalate, sodium bicarbonate and calcium carbonate. Repeat lab 2 hours after Re 7 Kayexalate showed potassium still at 6.8, sodium slightly improved to 129 bicarb of 218. 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 Prior urinalysis was negative for proteinuria.. Has hypertension, seems reasonably well control, currently spironolactone on hold. Allergies Coded Allergies: Penicillins (Verified Allergy, Severe, HIVES, 12/13/17) Sulfamethoxazole (Verified Allergy, Mild, rash, 12/13/17) Trimethoprim (Verified Allergy, Mild, rash, 12/13/17) Gentamicin (Verified Allergy, Unknown, RASH, 12/13/17) Sulfa Antibiotics (Verified Allergy, Unknown, RASH, 12/13/17) Inpatient Medications Current Inpatient Medications Medications (Trade) Dose Ordered Sig/Simon Route Start Time Stop Time Status Last Admin Dose Admin Acetaminophen (Tylenol Tab) 650 mg Q4H PRN PO 12/13/17 10:45 01/12/18 10:44 Al Hydrox/Mg Hydrox/Simethicone (Maalox Max Susp) 15 ml Q4H PRN PO 12/13/17 10:45 01/12/18 10:44 Magnesium Hydroxide (Milk Of Magnesia Susp) 30 ml Q12H PRN PO 12/13/17 10:45 01/12/18 10:44 Ondansetron HCl (Zofran Inj) 4 mg Q6H PRN IV 12/13/17 10:45 01/12/18 10:44 Polyethylene (Miralax Powder Packet) 17 gm DAILY PRN PO 12/13/17 10:45 01/12/18 10:44 Amlodipine Besylate (Norvasc Tab) 10 mg DAILY PO 12/14/17 09:00 01/13/18 08:59 Atorvastatin Calcium (Lipitor Tab) 10 mg HS PO 12/13/17 21:00 01/12/18 20:59 Cholecalciferol (Vitamin D Tab) 1,000 inter.unit DAILY PO 12/14/17 09:00 01/13/18 08:59 Metoprolol Tartrate (Lopressor Tab) 100 mg BID PO 12/13/17 21:00 01/12/18 20:59 Finasteride (Proscar Tab) 5 mg QAM PO 12/14/17 09:00 01/13/18 08:59 Tamsulosin HCl (Flomax Cap) 0.4 mg HS PO 12/13/17 21:00 01/12/18 20:59 Social History Smoking Status: Former Smoker Smokeless Tobacco Use: No Alcohol Use: none Drug Use: none Marital Status: Housing Status: lives with family Occupation: retired Review of Systems A complete review of systems was performed. Pertinent positives are noted above. All other systems are negative. Physical Exam Date Time Temp Pulse Resp B/P (MAP) Pulse Ox O2 Delivery O2 Flow Rate FiO2 12/13/17 15:13 36.4 72 19 148/72 (97) 92 Room Air 12/13/17 13:04 36.4 72 20 154/72 Room Air 12/13/17 12:53 36.4 72 20 154/72 (99) 90 Room Air 12/13/17 12:25 69 20 170/86 93 12/13/17 11:21 72 23 161/77 92 Room Air 12/13/17 10:54 61 24 147/72 93 Room Air 12/13/17 09:34 78 19 140/64 94 Room Air 12/13/17 08:05 60 12/13/17 08:00 36.9 63 20 154/81 95 Room Air GENERAL: elderly male,AAA x 3, ill-appearing, not in any distress. Looks pale. HEENT: Atraumatic, normocephalic. NECK: Supple, no JVD, no carotid bruit appreciated. ENT: No sinus tenderness MOUTH and THROAT: Moist oral mucosa, no oral ulcer or pharyngeal erythema RESPIRATORY: Normal breathing efforts, no accessory muscle use, clear to auscultation bilaterally, no wheezes or rales. CARDIOVASCULAR: S1, S2 normal, rate rhythm regular. ABDOMEN: Soft, nontender, positive bowel sound. MUSCULOSKELETAL: No CVA tenderness. No joint swelling, erythema or tenderness. Normal range of motion. SKIN: No skin rash EXTREMITY: No lower extremity edema NEURO: No gross focal neurological deficit, speech fluent. PSYCHIATRY: Normal mood and judgment Laboratory Results Last 24 Hours Test 12/13/17 08:15 12/13/17 09:25 12/13/17 11:29 White Blood Count 12.21 K/uL Red Blood Count 4.25 M/uL Hemoglobin 13.4 g/dL Hematocrit 38.6 % Mean Corpuscular Volume 90.8 fL Mean Corpuscular Hemoglobin 31.5 pg Mean Corpuscular Hemoglobin Concent 34.7 g/dl Platelet Count 273 K/uL Mean Platelet Volume 9.7 fL Neutrophils (%) (Auto) 86.1 % Lymphocytes (%) (Auto) 8.6 % Monocytes (%) (Auto) 4.0 % Eosinophils (%) (Auto) 0.8 % Basophils (%) (Auto) 0.1 % Neutrophils # (Auto) 10.51 K/uL Lymphocytes # (Auto) 1.05 K/uL Monocytes # (Auto) 0.49 K/uL Eosinophils # (Auto) 0.10 K/uL Basophils # (Auto) 0.01 K/uL RDW Standard Deviation 45.8 fL RDW Coefficient of Variation 13.9 % Immature Granulocyte % (Auto) 0.4 % Immature Granulocyte # (Auto) 0.05 K/uL Prothrombin Time 12.4 SECONDS Prothromb Time International Ratio 1.2 Activated Partial Thromboplast Time 30.9 SECONDS Partial Thromboplastin Ratio 1.2 Sodium Level 126 mmol/L 129 mmol/L Potassium Level 6.8 mmol/L 6.8 mmol/L Chloride Level 97 mmol/L 101 mmol/L Carbon Dioxide Level 16 mmol/L 18 mmol/L Anion Gap 13.0 mmol/L 11.0 mmol/L Blood Urea Nitrogen 137 mg/dl 127 mg/dl Creatinine 12.60 mg/dl 10.80 mg/dl Est Creatinine Clear Calc Drug Dose 2.4 ml/min 2.8 ml/min Estimated GFR () 3.8 4.6 Estimated GFR (Non- 3.3 3.9 BUN/Creatinine Ratio 10.8 11.8 Random Glucose 97 mg/dl 88 mg/dl Calcium Level 8.0 mg/dl 7.9 mg/dl Magnesium Level 2.4 mg/dl Total Bilirubin 0.6 mg/dl Direct Bilirubin 0.2 mg/dl Aspartate Amino Transf (AST/SGOT) 10 U/L Alanine Aminotransferase (ALT/SGPT) 15 U/L Alkaline Phosphatase 77 U/L Total Creatine Kinase 122 U/L Creatine Kinase MB 5.0 ng/ml Creatine Kinase MB Ratio 4.1 Troponin I 0.016 ng/ml Total Protein 7.3 gm/dl Albumin 3.5 gm/dl Lipase 278 U/L Thyroid Stimulating Hormone (TSH) 1.220 uIu/ml Urine Color YELLOW Urine Appearance CLOUDY Urine pH 5.5 Urine Specific [place] 1.015 Urine Protein 2+ Urine Glucose (UA) NEG Urine Ketones NEG Urine Occult Blood 3+ Urine Nitrite NEG Urine Bilirubin NEG Urine Urobilinogen NEG Urine Leukocyte Esterase MODERATE Urine WBC (Auto) >30 /hpf Urine RBC (Auto) 0-4 /hpf Urine Hyaline Casts (Auto) 0 /lpf Urine Epithelial Cells (Auto) 0-5 /lpf Urine Bacteria (Auto) NEG Urine Yeast (Auto) Prostate Specific Antigen 1.200 ng/ml Impression (1) Acute renal failure (2) Hyperkalemia (3) Bladder outflow obstruction (4) Metabolic acidosis (5) Hypertension (6) Hyponatremia 82 year old male With acute kidney injury and significant metabolic abnormality in the setting bladder outlet obstruction. 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 Presented with more than a week history of generalized weakness and gross hematuria. Kaur catheter was placed with 3 liters of urine output. Acute kidney injury secondary to obstructive uropathy with significant electrolyte abnormality. Received Kayexalate with no significant improvement potassium potassium remained at 6.8 however no EKG changes. Recommendations --Kayexalate 30 grams p.o. x1 dose now repeat lab an hour after the Kayexalate dose --if potassium remain elevated, will get a temporary dialysis catheter and do emergency dialysis this evening. If electrolyte improve and dialysis can be avoided, start on oral bicarbonate --insert Kaur catheter, renal function might start to improve once obstructions released however with patient's history of underlying baseline CKD , there is high risk for needing dialysis going forward --low-potassium diet --check Phosphate, PTH --avoid nephrotoxic medications --dose meds for eGFR for <10 Thank you for allowing me to participate in your patient's care. It was a pleasure to see Cristopher
[2017-12-13 17:05] LABS: CALCIUM 7.9 mg/dl (8.5-10.1); CREATININE 9.38 mg/dl (0.60-1.40)
[2017-12-13 17:07] LABS: POTASSIUM 5.3 mmol/L (3.5-5.1)
--- NOTE | 2017-12-13 18:12 | Nephrology Progress Note ---
Nephrology Progress Note Date of Service Dec 13, 2017. Chief Complaint F/U for acute kidney injury, hyperkalemia and metabolic acidosis. Review of Systems A complete review of systems was performed. Pertinent positives are noted above. All other systems are negative. Vital Signs Last 8 Hrs Date Time Temp Pulse Resp B/P (MAP) Pulse Ox O2 Delivery O2 Flow Rate FiO2 12/13/17 15:13 36.4 72 19 148/72 (97) 92 Room Air 12/13/17 13:04 36.4 72 20 154/72 Room Air 12/13/17 12:53 36.4 72 20 154/72 (99) 90 Room Air 12/13/17 12:25 69 20 170/86 93 12/13/17 11:21 72 23 161/77 92 Room Air 12/13/17 10:54 61 24 147/72 93 Room Air I & O 24-Hour Column 12/14/17 08:00 Intake Total 1000 ml Output Total 2900 ml Balance -1900 ml Last Recorded Weight Weight (Kilograms): 100.500 Social History Smokeless Tobacco Use: No Alcohol Use: none Drug Use: none Marital Status: Housing Status: lives with family Occupation: retired Laboratory Results Past 24 Hours 12/13/17 08:15 Red Blood Count 4.25, Mean Corpuscular Volume 90.8, Mean Corpuscular Hemoglobin 31.5, Mean Corpuscular Hemoglobin Concent 34.7, Mean Platelet Volume 9.7, Neutrophils (%) (Auto) 86.1, Lymphocytes (%) (Auto) 8.6, Monocytes (%) (Auto) 4.0, Eosinophils (%) (Auto) 0.8, Basophils (%) (Auto) 0.1, Neutrophils # (Auto) 10.51, Lymphocytes # (Auto) 1.05, Monocytes # (Auto) 0.49, Eosinophils # (Auto) 0.10, Basophils # (Auto) 0.01 12/13/17 08:15 12/13/17 11:29 12/13/17 16:07 Test 12/13/17 08:15 12/13/17 09:25 12/13/17 11:29 12/13/17 16:07 White Blood Count 12.21 K/uL (4.8-10.8) Red Blood Count 4.25 M/uL (4.7-6.1) Hemoglobin 13.4 g/dL (14.0-18.0) Hematocrit 38.6 % (42-52) Mean Corpuscular Volume 90.8 fL (80-100) Mean Corpuscular Hemoglobin 31.5 pg (25-34) Mean Corpuscular Hemoglobin Concent 34.7 g/dl (32-36) Platelet Count 273 K/uL (130-400) Mean Platelet Volume 9.7 fL (7.4-10.4) Neutrophils (%) (Auto) 86.1 % Lymphocytes (%) (Auto) 8.6 % Monocytes (%) (Auto) 4.0 % Eosinophils (%) (Auto) 0.8 % Basophils (%) (Auto) 0.1 % Neutrophils # (Auto) 10.51 K/uL (1.4-6.5) Lymphocytes # (Auto) 1.05 K/uL (1.2-3.4) Monocytes # (Auto) 0.49 K/uL (0.11-0.59) Eosinophils # (Auto) 0.10 K/uL (0-0.5) Basophils # (Auto) 0.01 K/uL (0-0.2) RDW Standard Deviation 45.8 fL (36.4-46.3) RDW Coefficient of Variation 13.9 % (11.5-14.5) Immature Granulocyte % (Auto) 0.4 % Immature Granulocyte # (Auto) 0.05 K/uL (0.00-0.02) Prothrombin Time 12.4 SECONDS (9.0-12.0) Prothromb Time International Ratio 1.2 (0.9-1.1) Activated Partial Thromboplast Time 30.9 SECONDS (21.0-31.0) Partial Thromboplastin Ratio 1.2 Anion Gap 13.0 mmol/L (3-11) 11.0 mmol/L (3-11) 13.0 mmol/L (3-11) Est Creatinine Clear Calc Drug Dose 2.4 ml/min 2.8 ml/min 7.2 ml/min Estimated GFR () 3.8 4.6 5.4 Estimated GFR (Non- 3.3 3.9 4.7 BUN/Creatinine Ratio 10.8 (10-20) 11.8 (10-20) 12.4 (10-20) Calcium Level 8.0 mg/dl (8.5-10.1) 7.9 mg/dl (8.5-10.1) 7.9 mg/dl (8.5-10.1) Magnesium Level 2.4 mg/dl (1.8-2.4) Total Bilirubin 0.6 mg/dl (0.2-1) Direct Bilirubin 0.2 mg/dl (0-0.2) Aspartate Amino Transf (AST/SGOT) 10 U/L (15-37) Alanine Aminotransferase (ALT/SGPT) 15 U/L (12-78) Alkaline Phosphatase 77 U/L (45-117) Total Creatine Kinase 122 U/L (39-308) Creatine Kinase MB 5.0 ng/ml (0.5-3.6) Creatine Kinase MB Ratio 4.1 (0-3.0) Troponin I 0.016 ng/ml (0-0.045) Total Protein 7.3 gm/dl (6.4-8.2) Albumin 3.5 gm/dl (3.4-5.0) Lipase 278 U/L (73-393) Thyroid Stimulating Hormone (TSH) 1.220 uIu/ml (0.300-4.500) Urine Color YELLOW Urine Appearance CLOUDY (CLEAR) Urine pH 5.5 (4.5-7.5) Urine Specific [place] 1.015 (1.000-1.030) Urine Protein 2+ (NEG) Urine Glucose (UA) NEG (NEG) Urine Ketones NEG (NEG) Urine Occult Blood 3+ (NEG) Urine Nitrite NEG (NEG) Urine Bilirubin NEG (NEG) Urine Urobilinogen NEG (NEG) Urine Leukocyte Esterase MODERATE (NEG) Urine WBC (Auto) >30 /hpf (0-5) Urine RBC (Auto) 0-4 /hpf (0-4) Urine Hyaline Casts (Auto) 0 /lpf (0-5) Urine Epithelial Cells (Auto) 0-5 /lpf (0-5) Urine Bacteria (Auto) NEG (NEG) Urine Yeast (Auto) (NONE PRSENT) Prostate Specific Antigen 1.200 ng/ml (0.000-4.000) Test 12/13/17 16:26 Allergies Coded Allergies: Penicillins (Verified Allergy, Severe, HIVES, 12/13/17) Sulfamethoxazole (Verified Allergy, Mild, rash, 12/13/17) Trimethoprim (Verified Allergy, Mild, rash, 12/13/17) Gentamicin (Verified Allergy, Unknown, RASH, 12/13/17) Sulfa Antibiotics (Verified Allergy, Unknown, RASH, 12/13/17) Medications Current Inpatient Medications Medications (Trade) Dose Ordered Sig/Simon Route Start Time Stop Time Status Last Admin Dose Admin Acetaminophen (Tylenol Tab) 650 mg Q4H PRN PO 12/13/17 10:45 01/12/18 10:44 Al Hydrox/Mg Hydrox/Simethicone (Maalox Max Susp) 15 ml Q4H PRN PO 12/13/17 10:45 01/12/18 10:44 Magnesium Hydroxide (Milk Of Magnesia Susp) 30 ml Q12H PRN PO 12/13/17 10:45 01/12/18 10:44 Ondansetron HCl (Zofran Inj) 4 mg Q6H PRN IV 12/13/17 10:45 01/12/18 10:44 Polyethylene (Miralax Powder Packet) 17 gm DAILY PRN PO 12/13/17 10:45 01/12/18 10:44 Amlodipine Besylate (Norvasc Tab) 10 mg DAILY PO 12/14/17 09:00 01/13/18 08:59 Atorvastatin Calcium (Lipitor Tab) 10 mg HS PO 12/13/17 21:00 01/12/18 20:59 Cholecalciferol (Vitamin D Tab) 1,000 inter.unit DAILY PO 12/14/17 09:00 01/13/18 08:59 Metoprolol Tartrate (Lopressor Tab) 100 mg BID PO 12/13/17 21:00 01/12/18 20:59 Finasteride (Proscar Tab) 5 mg QAM PO 12/14/17 09:00 01/13/18 08:59 Tamsulosin HCl (Flomax Cap) 0.4 mg HS PO 12/13/17 21:00 01/12/18 20:59 Impression (1) Acute renal failure (2) Hyperkalemia (3) Bladder outflow obstruction (4) Metabolic acidosis (5) Hypertension (6) Hyponatremia 82 year old male With acute kidney injury and significant metabolic abnormality in the setting bladder outlet obstruction. 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 Presented with more than a week history of generalized weakness and gross hematuria. Kaur catheter was placed with 3 liters of urine output. Acute kidney injury secondary to obstructive uropathy with significant electrolyte abnormality. Received Kayexalate with no significant improvement potassium potassium remained at 6.8 however no EKG changes. Recommendations Labs reviewed, K better at 5.3, Na corrected to 133 from 126 this am. Will give D5W 500 ml @ 100ml/h to prevent further rise in Na, aim to keep S Na at 132 by tomorrow morning. No acute need for RING SEWER at this [oint, hopefully renal function will continue to improve with improvement in electrolyte.
[2017-12-13] MEDS: DEXTROSE 5% 1000ML 500 ML IV SCH ×2 (18:25→23:01)
[2017-12-13 19:28] VITALS: BP_SYST 132; BP_SYST 164; BP_DIAS 68; BP_DIAS 89; PULSE 78; PULSE 79; TEMP 36.4; TEMP 36.6; O2SAT 95; O2SAT 99
[2017-12-13] MEDS: ATORVASTATIN 10 MG TAB PO SCH (20:48)
[2017-12-13] MEDS: METOPROLOL TARTRATE 100 MG TAB PO SCH (20:48)
[2017-12-13] MEDS: TAMSULOSIN HCL 0.4 MG CAP PO SCH (20:49)
[2017-12-13 21:06] LABS: CALCIUM 7.5 mg/dl (8.5-10.1); CREATININE 7.87 mg/dl (0.60-1.40); POTASSIUM 4.8 mmol/L (3.5-5.1)
[2017-12-13 21:50] VITALS: BP_SYST 155; BP_SYST 159; BP_SYST 164; BP_DIAS 69; BP_DIAS 70; BP_DIAS 73; PULSE 70; PULSE 72; PULSE 94; TEMP 36.6; O2SAT 99
[2017-12-14 00:15] LABS: CALCIUM 7.3 mg/dl (8.5-10.1); CREATININE 6.7 mg/dl (0.60-1.40); POTASSIUM 4.2 mmol/L (3.5-5.1)
[2017-12-14 04:00] VITALS: BP 144/65; PULSE 73; TEMP 36.6; O2SAT 91
[2017-12-14 04:25] LABS: HEMATOCRIT 34.9 % (42-52); MEAN CELL VOLUME 90.2 fL (80-100); MEAN CORPUSCULAR HGB CONC 34.4 g/dl (32-36); MEAN PLATELET VOLUME 9.7 fL (7.4-10.4); PLATELET COUNT 216 K/uL (130-400); RED CELL DISTRIBUTION WIDTH CV 13.7 % (11.5-14.5); RED CELL DISTRIBUTION WIDTH SD 44.6 fL (36.4-46.3); WHITE BLOOD COUNT 9.98 K/uL (4.8-10.8)
[2017-12-14 04:50] LABS: CALCIUM 7.4 mg/dl (8.5-10.1); CREATININE 5.54 mg/dl (0.60-1.40); PHOSPHORUS 4.6 mg/dl (2.5-4.9); POTASSIUM 4.3 mmol/L (3.5-5.1)
[2017-12-14] MEDS ORDERED: HydrALAZINE HCL 20 MG/ML VIAL IV. PRN (07:30)
[2017-12-14 07:54] VITALS: BP 155/68; PULSE 67; TEMP 36.4; O2SAT 95
[2017-12-14] MEDS ORDERED: CEFTRIAXONE SOD INJ 1 GM in DEXTROSE 5% ADD-VANTAGE 50ML 50 ML IV SCH (08:00)
[2017-12-14] MEDS: METOPROLOL TARTRATE 100 MG TAB PO SCH ×2 (09:09→19:52)
--- NOTE | 2017-12-14 09:09 | Urology Progress Note ---
Progress Note Date of Service Dec 14, 2017. Subjective Pt evaluation today including: conversation w/ patient, chart review, lab review Pain: Denes pain Voiding: powell catheter in place (patent, draining clear, yellow urine ) 82 yo male admitted with ARF and UR. Powell remains in place. Cr improved to 5.54 this morning. Constitutional: No fever, No chills Respiratory: No shortness of breath Cardiovascular: No chest pain Abdomen: No pain, No nausea, No vomiting Male : No dysuria, No hematuria Heme: No abnormal bleeding/bruising Objective Vital Signs Date Time Temp Pulse Resp B/P (MAP) Pulse Ox O2 Delivery O2 Flow Rate FiO2 12/14/17 07:54 36.4 67 16 155/68 (97) 95 12/14/17 04:00 36.6 73 17 144/65 (91) 91 Room Air 12/13/17 21:50 70 155/70 (98) 12/13/17 21:50 36.6 72 18 164/73 (103) 99 Room Air 12/13/17 21:50 94 159/69 (99) 12/13/17 20:00 Room Air 12/13/17 19:28 36.6 78 20 164/68 (100) 95 Room Air 12/13/17 19:28 36.4 79 19 132/89 (103) 99 12/13/17 15:13 36.4 72 19 148/72 (97) 92 Room Air 12/13/17 13:04 36.4 72 20 154/72 Room Air 12/13/17 12:53 36.4 72 20 154/72 (99) 90 Room Air 12/13/17 12:25 69 20 170/86 93 12/13/17 11:21 72 23 161/77 92 Room Air 12/13/17 10:54 61 24 147/72 93 Room Air 12/13/17 09:34 78 19 140/64 94 Room Air Physical Exam General Appearance: no apparent distress Eyes: normal inspection ENT: hearing grossly normal Neck: no JVD Respiratory/Chest: no respiratory distress, no accessory muscle use Cardiovascular: no JVD Extremities: normal inspection Neurologic/Psychiatric: alert, normal mood/affect, oriented x 3 Skin: normal color Laboratory Results Last 24 Hours Test 12/13/17 09:25 12/13/17 11:29 7/30/18 16:07 12/13/17 19:45 Urine Color YELLOW Urine Appearance CLOUDY Urine pH 5.5 Urine Specific [place] 1.015 Urine Protein 2+ Urine Glucose (UA) NEG Urine Ketones NEG Urine Occult Blood 3+ Urine Nitrite NEG Urine Bilirubin NEG Urine Urobilinogen NEG Urine Leukocyte Esterase MODERATE Urine WBC (Auto) >30 /hpf Urine RBC (Auto) 0-4 /hpf Urine Hyaline Casts (Auto) 0 /lpf Urine Epithelial Cells (Auto) 0-5 /lpf Urine Bacteria (Auto) NEG Urine Yeast (Auto) Sodium Level 129 mmol/L 133 mmol/L Potassium Level 6.8 mmol/L 5.3 mmol/L Chloride Level 101 mmol/L 104 mmol/L Carbon Dioxide Level 18 mmol/L 17 mmol/L Anion Gap 11.0 mmol/L 13.0 mmol/L Blood Urea Nitrogen 127 mg/dl 115 mg/dl Creatinine 10.80 mg/dl 9.38 mg/dl Est Creatinine Clear Calc Drug Dose 2.8 ml/min 7.2 ml/min Estimated GFR () 4.6 5.4 Estimated GFR (Non- 3.9 4.7 BUN/Creatinine Ratio 11.8 12.4 Random Glucose 88 mg/dl 106 mg/dl Calcium Level 7.9 mg/dl 7.9 mg/dl Prostate Specific Antigen 1.200 ng/ml Urine Osmolality 382 mOms/kg Test 12/13/17 20:06 12/13/17 23:30 12/14/17 04:06 12/14/17 07:58 Sodium Level 134 mmol/L 134 mmol/L 134 mmol/L Potassium Level 4.8 mmol/L 4.2 mmol/L 4.3 mmol/L Chloride Level 105 mmol/L 104 mmol/L 104 mmol/L Carbon Dioxide Level 18 mmol/L 18 mmol/L 19 mmol/L Anion Gap 11.0 mmol/L 12.0 mmol/L 11.0 mmol/L Blood Urea Nitrogen 105 mg/dl 97 mg/dl 84 mg/dl Creatinine 7.87 mg/dl 6.70 mg/dl 5.54 mg/dl Est Creatinine Clear Calc Drug Dose 8.6 ml/min 10.1 ml/min 12.2 ml/min Estimated GFR () 6.7 8.1 10.2 Estimated GFR (Non- 5.8 7.0 8.8 BUN/Creatinine Ratio 13.4 14.5 15.5 Random Glucose 134 mg/dl 139 mg/dl 151 mg/dl Calcium Level 7.5 mg/dl 7.3 mg/dl 7.4 mg/dl 25-Hydroxy Vitamin D Total 21.2 ng/ml White Blood Count 9.98 K/uL Red Blood Count 3.87 M/uL Hemoglobin 12.0 g/dL Hematocrit 34.9 % Mean Corpuscular Volume 90.2 fL Mean Corpuscular Hemoglobin 31.0 pg Mean Corpuscular Hemoglobin Concent 34.4 g/dl RDW Standard Deviation 44.6 fL RDW Coefficient of Variation 13.7 % Platelet Count 216 K/uL Mean Platelet Volume 9.7 fL Phosphorus Level 4.6 mg/dl Parathyroid Hormone (Intact) 139.8 pg/mL Assessment and Plan Urinary retention, HERNANDEZ, BPH, gross hematuria, ARF UR secondary to HERNANDEZ. Cr improving. Continue powell catheter for total of 7-10 days. Will attempt a trial of void as an outpatient at that time. Continue tamsulosin. No evidence for orthostasis overnight. Continue finasteride. Hematuria resolved. Culture and cytology pending. Normal PSA at 1.2. Will continue to follow along with primary service. Pt seen urine clear creatinine improving continue powell drainage
[2017-12-14] MEDS: AMLODIPINE BESYLATE 5 MG TAB PO SCH (09:10)
[2017-12-14] MEDS: CHOLECALCIFEROL 1000 INTER.UNIT TAB PO SCH (09:10)
[2017-12-14 09:11] LABS: CALCIUM 7.6 mg/dl (8.5-10.1); CREATININE 4.58 mg/dl (0.60-1.40); POTASSIUM 4.2 mmol/L (3.5-5.1)
[2017-12-14] MEDS: FINASTERIDE 5 MG TAB PO SCH (09:11)
--- NOTE | 2017-12-14 10:30 | Nephrology Progress Note ---
Nephrology Progress Note Date of Service Dec 14, 2017. Chief Complaint F/U for acute kidney injury, hyperkalemia and metabolic acidosis. Subjective Mr. Yang was seen and examined in his room this am. He feels much better, denies any shortness of breath or chest pain. Has Kaur catheter with decent urine output. Renal function improve significantly creatinine down to 4.5, electrolyte abnormality improved as well, potassium normalized bicarb 21, serum sodium staying around 133-134. Review of Systems A complete review of systems was performed. Pertinent positives are noted above. All other systems are negative. Vital Signs Last 8 Hrs Date Time Temp Pulse Resp B/P (MAP) Pulse Ox O2 Delivery O2 Flow Rate FiO2 12/14/17 07:54 36.4 67 16 155/68 (97) 95 12/14/17 04:00 36.6 73 17 144/65 (91) 91 Room Air Last Recorded Weight Weight (Kilograms): 98.600 Physical Exam GENERAL: Elderly male, AAA x 3, pleasant, healthy-appearing, not in any distress. NECK: Supple, no JVD. RESPIRATORY: Normal breathing efforts, no accessory muscle use, clear to auscultation bilaterally, no wheezes or rales. CARDIOVASCULAR: S1, S2 normal, rate rhythm regular. EXTREMITY: No lower extremity edema NEURO: speech fluent. PSYCHIATRY: Normal mood and judgment Social History Smokeless Tobacco Use: No Alcohol Use: none Drug Use: none Marital Status: Housing Status: lives with family Occupation: retired Laboratory Results Past 24 Hours 12/14/17 04:06 12/13/17 11:29 12/13/17 16:07 12/13/17 20:06 12/13/17 23:30 12/14/17 04:06 12/14/17 07:58 Test 12/13/17 11:29 12/13/17 16:07 12/13/17 19:45 12/13/17 20:06 Anion Gap 11.0 mmol/L (3-11) 13.0 mmol/L (3-11) 11.0 mmol/L (3-11) Est Creatinine Clear Calc Drug Dose 2.8 ml/min 7.2 ml/min 8.6 ml/min Estimated GFR () 4.6 5.4 6.7 Estimated GFR (Non- 3.9 4.7 5.8 BUN/Creatinine Ratio 11.8 (10-20) 12.4 (10-20) 13.4 (10-20) Calcium Level 7.9 mg/dl (8.5-10.1) 7.9 mg/dl (8.5-10.1) 7.5 mg/dl (8.5-10.1) Prostate Specific Antigen 1.200 ng/ml (0.000-4.000) Urine Osmolality 382 mOms/kg (500-800) 25-Hydroxy Vitamin D Total 21.2 ng/ml (30-100) Test 12/13/17 23:30 12/14/17 04:06 12/14/17 07:58 Anion Gap 12.0 mmol/L (3-11) 11.0 mmol/L (3-11) 9.0 mmol/L (3-11) Est Creatinine Clear Calc Drug Dose 10.1 ml/min 12.2 ml/min 14.6 ml/min Estimated GFR () 8.1 10.2 12.8 Estimated GFR (Non- 7.0 8.8 11.1 BUN/Creatinine Ratio 14.5 (10-20) 15.5 (10-20) 15.8 (10-20) Calcium Level 7.3 mg/dl (8.5-10.1) 7.4 mg/dl (8.5-10.1) 7.6 mg/dl (8.5-10.1) Red Blood Count 3.87 M/uL (4.7-6.1) Mean Corpuscular Volume 90.2 fL (80-100) Mean Corpuscular Hemoglobin 31.0 pg (25-34) Mean Corpuscular Hemoglobin Concent 34.4 g/dl (32-36) RDW Standard Deviation 44.6 fL (36.4-46.3) RDW Coefficient of Variation 13.7 % (11.5-14.5) Mean Platelet Volume 9.7 fL (7.4-10.4) Phosphorus Level 4.6 mg/dl (2.5-4.9) Parathyroid Hormone (Intact) 139.8 pg/mL (18.4-80.1) Allergies Coded Allergies: Penicillins (Verified Allergy, Severe, HIVES, 12/13/17) Sulfamethoxazole (Verified Allergy, Mild, rash, 12/13/17) Trimethoprim (Verified Allergy, Mild, rash, 12/13/17) Gentamicin (Verified Allergy, Unknown, RASH, 12/13/17) Sulfa Antibiotics (Verified Allergy, Unknown, RASH, 12/13/17) Medications Current Inpatient Medications Medications (Trade) Dose Ordered Sig/Simon Route Start Time Stop Time Status Last Admin Dose Admin Acetaminophen (Tylenol Tab) 650 mg Q4H PRN PO 12/13/17 10:45 01/12/18 10:44 Al Hydrox/Mg Hydrox/Simethicone (Maalox Max Susp) 15 ml Q4H PRN PO 12/13/17 10:45 01/12/18 10:44 Magnesium Hydroxide (Milk Of Magnesia Susp) 30 ml Q12H PRN PO 12/13/17 10:45 01/12/18 10:44 Ondansetron HCl (Zofran Inj) 4 mg Q6H PRN IV 12/13/17 10:45 01/12/18 10:44 Polyethylene (Miralax Powder Packet) 17 gm DAILY PRN PO 12/13/17 10:45 01/12/18 10:44 Amlodipine Besylate (Norvasc Tab) 10 mg DAILY PO 12/14/17 09:00 01/13/18 08:59 12/14/17 09:10 10 MG Atorvastatin Calcium (Lipitor Tab) 10 mg HS PO 12/13/17 21:00 01/12/18 20:59 12/13/17 20:48 10 MG Cholecalciferol (Vitamin D Tab) 1,000 inter.unit DAILY PO 12/14/17 09:00 01/13/18 08:59 12/14/17 09:10 1,000 INTER.UNIT Metoprolol Tartrate (Lopressor Tab) 100 mg BID PO 12/13/17 21:00 01/12/18 20:59 12/14/17 09:09 100 MG Finasteride (Proscar Tab) 5 mg QAM PO 12/14/17 09:00 01/13/18 08:59 12/14/17 09:11 5 MG Tamsulosin HCl (Flomax Cap) 0.4 mg HS PO 12/13/17 21:00 01/12/18 20:59 12/13/17 20:49 0.4 MG Hydralazine HCl (HydrALAZINE INJ) 20 mg Q6 PRN IV. 12/14/17 07:30 01/13/18 07:29 Ceftriaxone Sodium 1 gm/ Dextrose 50 ml @ 100 mls/hr Q24H IV 12/14/17 08:00 12/24/17 07:59 12/14/17 09:11 100 MLS/HR Impression (1) Acute renal failure (2) Hyperkalemia (3) Bladder outflow obstruction (4) Metabolic acidosis (5) Hypertension (6) Hyponatremia 82 year old male With acute kidney injury and significant metabolic abnormality in the setting bladder outlet obstruction. 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 Presented with more than a week history of generalized weakness and gross hematuria. Kaur catheter was placed with 3 liters of urine output. Acute kidney injury secondary to obstructive uropathy with significant electrolyte abnormality. Received Kayexalate with no significant improvement potassium potassium remained at 6.8 however no EKG changes. Recommendations --Avoid any further IV fluid --expect renal function to continue to improve, electrolyte abnormality almost resolved. --ergo calciferol 16697 units weekly for 12 weeks --continue on Kaur catheter as per Urology recommendation Will follow
--- NOTE | 2017-12-14 11:23 | Hospitalist Progress Note ---
Hospitalist Progress Note Date of Service Dec 14, 2017. Subjective Pt evaluation today including: conversation w/ patient, physical exam, chart review, lab review, review of inpatient medication list Pain: None PO Intake: Tolerating PO diet, appetite improved Voiding: powell catheter in place Patient reports feeling better today. He states he was able to stand at bedside today and did not feel as shaky or weak as yesterday. He states he has moved his bowels several times after receiving Kayexalate and his intermittent abdominal pain and nausea have since resolved. He also states his appetite is improved today. 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 The patient denies fevers, chills, sweats, chest pain, palpitations, claudication, cough, wheezing, shortness of breath, nausea, vomiting, abdominal pain, dysuria, hematuria, urinary retention, paralysis, weakness, numbness and tingling. Additional Comments: See HPI for pertinent positives and negatives. All other systems reviewed and negative. Objective Vital Signs Date Time Temp Pulse Resp B/P (MAP) Pulse Ox O2 Delivery O2 Flow Rate FiO2 12/14/17 08:00 Room Air 12/14/17 07:54 36.4 67 16 155/68 (97) 95 12/14/17 04:00 36.6 73 17 144/65 (91) 91 Room Air 12/13/17 21:50 70 155/70 (98) 12/13/17 21:50 36.6 72 18 164/73 (103) 99 Room Air 12/13/17 21:50 94 159/69 (99) 12/13/17 20:00 Room Air 12/13/17 19:28 36.6 78 20 164/68 (100) 95 Room Air 12/13/17 19:28 36.4 79 19 132/89 (103) 99 12/13/17 15:13 36.4 72 19 148/72 (97) 92 Room Air 12/13/17 13:04 36.4 72 20 154/72 Room Air 12/13/17 12:53 36.4 72 20 154/72 (99) 90 Room Air 12/13/17 12:25 69 20 170/86 93 12/13/17 11:21 72 23 161/77 92 Room Air Physical Exam Notes: General appearance: +Obese. Well-developed, well-nourished, no apparent distress Head: Normocephalic, atraumatic Eyes: Normal inspection, PERRL, EOMI ENT: Normal ENT inspection, hearing grossly normal, pharynx normal Neck: Supple, no JVD, trachea midline Respiratory/Chest: +Decreased breath sounds. Lungs clear to auscultation, no respiratory distress Cardiovascular: Regular rate & rhythm, no gallop, no murmur Abdomen/GI: Normal bowel sounds, non-tender, soft Extremities/Musculoskeletal: +RLE greater than LLE due to defect. No calf tenderness, no pedal edema. Neurological/Psych: Alert, normal mood/affect, oriented x 3 Skin: Normal color, warm/dry, no rash Laboratory Results Last 24 Hours Test 12/13/17 11:29 12/13/17 16:07 12/13/17 19:45 12/13/17 20:06 Sodium Level 129 mmol/L 133 mmol/L 134 mmol/L Potassium Level 6.8 mmol/L 5.3 mmol/L 4.8 mmol/L Chloride Level 101 mmol/L 104 mmol/L 105 mmol/L Carbon Dioxide Level 18 mmol/L 17 mmol/L 18 mmol/L Anion Gap 11.0 mmol/L 13.0 mmol/L 11.0 mmol/L Blood Urea Nitrogen 127 mg/dl 115 mg/dl 105 mg/dl Creatinine 10.80 mg/dl 9.38 mg/dl 7.87 mg/dl Est Creatinine Clear Calc Drug Dose 2.8 ml/min 7.2 ml/min 8.6 ml/min Estimated GFR () 4.6 5.4 6.7 Estimated GFR (Non- 3.9 4.7 5.8 BUN/Creatinine Ratio 11.8 12.4 13.4 Random Glucose 88 mg/dl 106 mg/dl 134 mg/dl Calcium Level 7.9 mg/dl 7.9 mg/dl 7.5 mg/dl Prostate Specific Antigen 1.200 ng/ml Urine Osmolality 382 mOms/kg 25-Hydroxy Vitamin D Total 21.2 ng/ml Test 12/13/17 23:30 12/14/17 04:06 12/14/17 07:58 Sodium Level 134 mmol/L 134 mmol/L 133 mmol/L Potassium Level 4.2 mmol/L 4.3 mmol/L 4.2 mmol/L Chloride Level 104 mmol/L 104 mmol/L 103 mmol/L Carbon Dioxide Level 18 mmol/L 19 mmol/L 21 mmol/L Anion Gap 12.0 mmol/L 11.0 mmol/L 9.0 mmol/L Blood Urea Nitrogen 97 mg/dl 84 mg/dl 73 mg/dl Creatinine 6.70 mg/dl 5.54 mg/dl 4.58 mg/dl Est Creatinine Clear Calc Drug Dose 10.1 ml/min 12.2 ml/min 14.6 ml/min Estimated GFR () 8.1 10.2 12.8 Estimated GFR (Non- 7.0 8.8 11.1 BUN/Creatinine Ratio 14.5 15.5 15.8 Random Glucose 139 mg/dl 151 mg/dl 233 mg/dl Calcium Level 7.3 mg/dl 7.4 mg/dl 7.6 mg/dl White Blood Count 9.98 K/uL Red Blood Count 3.87 M/uL Hemoglobin 12.0 g/dL Hematocrit 34.9 % Mean Corpuscular Volume 90.2 fL Mean Corpuscular Hemoglobin 31.0 pg Mean Corpuscular Hemoglobin Concent 34.4 g/dl RDW Standard Deviation 44.6 fL RDW Coefficient of Variation 13.7 % Platelet Count 216 K/uL Mean Platelet Volume 9.7 fL Phosphorus Level 4.6 mg/dl Parathyroid Hormone (Intact) 139.8 pg/mL Assessment and Plan 82 y/o male with a 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 Pt afebrile, VSS on arrival. CT of abdomen/pelvis shows marked bladder distention consistent w/bladder outlet obstruction, mild hydronephrosis, fecal impaction of rectum and low sigmoid, and mild nonobstructive ileus. CXR shows minimal interstitial infiltrate of left base superimposed on chronic interstitial change, slightly progressive superior mediastinal fullness and unchanged nodularity of left upper lobe. EKG no ischemic changes. Creatinine significantly elevated above baseline at 12.6, BUN 137. Potassium 6.8. Sodium 126. UA positive for 3+ blood. Acute renal failure on CKD stage III, s/p right nephrectomy, bladder outlet obstruction w/urinary retention--improving -Admit to telemetry. Pt had two 11 beat runs of v-tach overnight at 2308 and 0040, otherwise in sinus rhythm with HR 60s-70s. Pt asymptomatic overnight. -ARF likely secondary to bladder outlet obstruction/urinary retention and hydro -Consult nephrology, appreciate recs: Would avoid further IVF. Expect renal function to continue to improve as electrolyte abnormalities almost resolved. Recommend ergocalciferol 50,000 weekly x 12 weeks. -Calcium low at 7.6, vitamin D low at 21.2 -PTH elevated at 139.8 -Ergocalciferol as above -Consult urology, appreciate recs: Continue Powell for 7-10 days, can then attempt trial of voiding as outpatient. Urine cytology sent. Continue Flomax and finasteride. -Flomax 0.4 mg PO qd and Proscar 5 mg PO qd -Outpatient cystoscopy recommended for further evaluation of hematuria per urology -PSA WNL -Creatinine 5.54 on 12/14, down from 12.6 on admission -Urine culture negative, cytology pending Hyperkalemia--resolved -Potassium 4.3 on 12/14, down from 6.8 on admission -Given Kayexalate 15 gm in ED, then another 30 gm by nephro on 12/13 Hyponatremia--resolving -Sodium 134 on 12/14, up from 126 on admission HTN, HLD--stable -Continue Norvasc 10 mg PO qd, Lopressor 100 mg PO BID, and Lipitor 10 mg PO qd Diastolic dysfunction, peripheral edema--no pitting edema today -Hold spironolactone for now given ARF BPH, hematuria -Consult urology as above -Flomax and Proscar as above -Hematuria resolved -Hgb 12.0 on 12/14, down from 13.4 DVT prophylaxis -Hold chemical ppx for now as Hgb continues to drop -AIYANA james and SCDs Code Status -Level V, DO NOT RESUSCITATE Dispo -Lives at home w/, uses walker and cane to walk -2 recent falls due to weakness, PT/OT evaluate and treat -Case management consulted for discharge planning -OT recommends inpatient rehab. PT eval pending
[2017-12-14 11:53] VITALS: BP 148/78; PULSE 60; TEMP 36.5; O2SAT 93
[2017-12-14 12:43] LABS: CALCIUM 7.4 mg/dl (8.5-10.1); CREATININE 3.98 mg/dl (0.60-1.40); POTASSIUM 4.3 mmol/L (3.5-5.1)
[2017-12-14] MEDS ORDERED: ERGOCALCIFEROL 50,000 INTER.UNIT CAP PO SCH (13:00)
[2017-12-14 15:09] VITALS: BP 148/51; PULSE 66; TEMP 36.6; O2SAT 94
[2017-12-14 16:24] LABS: CALCIUM 7.4 mg/dl (8.5-10.1); CREATININE 3.43 mg/dl (0.60-1.40); POTASSIUM 4.1 mmol/L (3.5-5.1)
[2017-12-14 19:05] VITALS: BP 148/66; PULSE 70; TEMP 36.7; O2SAT 94
[2017-12-14] MEDS: ATORVASTATIN 10 MG TAB PO SCH (19:51)
[2017-12-14] MEDS: TAMSULOSIN HCL 0.4 MG CAP PO SCH (19:51)
[2017-12-14 23:50] VITALS: BP 136/84; PULSE 59; TEMP 36.7; O2SAT 94
[2017-12-15] VITALS (8 sets, daily range): BP systolic 145–169; BP diastolic 65–78; PULSE 71–128; TEMP 36.4–36.7; O2SAT 91–94
[2017-12-15 06:13] LABS: HEMATOCRIT 34.7 % (42-52); HEMOGLOBIN 11.9 g/dL (14.0-18.0); MEAN CELL VOLUME 91.6 fL (80-100); MEAN CORPUSCULAR HEMOGLOBIN 31.4 pg (25-34); MEAN CORPUSCULAR HGB CONC 34.3 g/dl (32-36); MEAN PLATELET VOLUME 9.6 fL (7.4-10.4); PLATELET COUNT 215 K/uL (130-400); RED CELL DISTRIBUTION WIDTH CV 13.9 % (11.5-14.5); RED CELL DISTRIBUTION WIDTH SD 45.5 fL (36.4-46.3); WHITE BLOOD COUNT 10.57 K/uL (4.8-10.8)
[2017-12-15 06:41] LABS: CALCIUM 7.3 mg/dl (8.5-10.1); CREATININE 2.4 mg/dl (0.60-1.40); POTASSIUM 3.7 mmol/L (3.5-5.1)
[2017-12-15] MEDS: AMLODIPINE BESYLATE 5 MG TAB PO SCH (08:41)
[2017-12-15] MEDS: METOPROLOL TARTRATE 100 MG TAB PO SCH ×2 (08:41→20:52)
[2017-12-15] MEDS: CHOLECALCIFEROL 1000 INTER.UNIT TAB PO SCH (08:41)
[2017-12-15] MEDS: FINASTERIDE 5 MG TAB PO SCH (08:41)
[2017-12-15] MEDS: SPIRONOLACTONE 25 MG TAB PO SCH (10:13)
--- NOTE | 2017-12-15 10:18 | Urology Progress Note ---
Progress Note Date of Service Dec 15, 2017. Subjective Pt evaluation today including: conversation w/ patient, chart review, lab review Pain: Denies Voiding: powell catheter in place 82 yo male with UR and ARF. Powell catheter remains in place. Cr continues to improve today to 2.40. UC&S preliminarily negative. Pt anxious to go home. Constitutional: No fever, No chills Respiratory: No shortness of breath Cardiovascular: No chest pain Abdomen: No pain, No nausea, No vomiting Male : No hematuria Heme: No abnormal bleeding/bruising Objective Vital Signs Date Time Temp Pulse Resp B/P (MAP) Pulse Ox O2 Delivery O2 Flow Rate FiO2 12/15/17 07:10 36.4 76 20 168/65 (99) 94 Room Air 12/15/17 03:40 36.5 71 18 164/67 (99) 94 Room Air 12/14/17 23:59 Room Air 12/14/17 23:50 36.7 59 18 136/84 (101) 94 Room Air 12/14/17 19:05 36.7 70 18 148/66 (93) 94 Room Air 12/14/17 16:00 Room Air 12/14/17 15:09 36.6 66 16 148/51 (83) 94 Room Air 12/14/17 11:53 36.5 60 16 148/78 (101) 93 Room Air Physical Exam General Appearance: no apparent distress, + obese Eyes: normal inspection ENT: hearing grossly normal Neck: no JVD Respiratory/Chest: no respiratory distress, no accessory muscle use Cardiovascular: no JVD Extremities: normal inspection Neurologic/Psychiatric: alert, normal mood/affect, oriented x 3 Skin: normal color Laboratory Results Last 24 Hours Test 12/14/17 12:02 12/14/17 15:58 12/15/17 05:39 Sodium Level 132 mmol/L 132 mmol/L 133 mmol/L Potassium Level 4.3 mmol/L 4.1 mmol/L 3.7 mmol/L Chloride Level 103 mmol/L 104 mmol/L 104 mmol/L Carbon Dioxide Level 21 mmol/L 20 mmol/L 21 mmol/L Anion Gap 8.0 mmol/L 8.0 mmol/L 8.0 mmol/L Blood Urea Nitrogen 67 mg/dl 64 mg/dl 43 mg/dl Creatinine 3.98 mg/dl 3.43 mg/dl 2.40 mg/dl Est Creatinine Clear Calc Drug Dose 16.8 ml/min 19.5 ml/min 27.8 ml/min Estimated GFR () 15.2 18.2 28.1 Estimated GFR (Non- 13.1 15.7 24.2 BUN/Creatinine Ratio 16.9 18.7 18.0 Random Glucose 155 mg/dl 148 mg/dl 114 mg/dl Calcium Level 7.4 mg/dl 7.4 mg/dl 7.3 mg/dl White Blood Count 10.57 K/uL Red Blood Count 3.79 M/uL Hemoglobin 11.9 g/dL Hematocrit 34.7 % Mean Corpuscular Volume 91.6 fL Mean Corpuscular Hemoglobin 31.4 pg Mean Corpuscular Hemoglobin Concent 34.3 g/dl RDW Standard Deviation 45.5 fL RDW Coefficient of Variation 13.9 % Platelet Count 215 K/uL Mean Platelet Volume 9.6 fL Assessment and Plan Urinary retention, HERNANDEZ, BPH, gross hematuria, ARF UR secondary to HERNANDEZ. Cr improving. Continue powell catheter for total of 7-10 days. Will attempt a trial of void as an outpatient at that time. Continue tamsulosin. No evidence for orthostasis overnight. Continue finasteride. Hematuria resolved. UC&S is negative. Cytology showing reactive urothelial cells. No high grade urothelial carcinoma seen. Recommend the pt have an outpatient cysto for further evaluation of gross hematuria and HERNANDEZ. Pt states he will think about it. Normal PSA at 1.2. No further management at this time. Recall PRN issues. Thanks for allowing us to participate in this pt's care. Will arrange for outpatient f/u.
--- NOTE | 2017-12-15 10:18 | Nephrology Progress Note ---
Nephrology Progress Note Date of Service Dec 15, 2017. Chief Complaint F/U for CRISTIANO and CKD Subjective Mr. Yang was seen and examined in his room this am. He feels much better, denies any shortness of breath or chest pain. Has Kaur catheter with great urine output. Renal function improved significantly creatinine down to 2.4, electrolyte abnormality improved as well, potassium and bicarb normalized, serum sodium staying around 133 Review of Systems all other ROS negative except for as above A complete review of systems was performed. Pertinent positives are noted above. All other systems are negative. Vital Signs Last 8 Hrs Date Time Temp Pulse Resp B/P (MAP) Pulse Ox O2 Delivery O2 Flow Rate FiO2 12/15/17 07:10 36.4 76 20 168/65 (99) 94 Room Air 12/15/17 03:40 36.5 71 18 164/67 (99) 94 Room Air I & O yesterday 1883/4150 Net -2267cc today net -850cc Last Recorded Weight Weight (Kilograms): 97.600 Physical Exam GENERAL: Elderly male, AAA x 3, pleasant, healthy-appearing, not in any distress. NECK: Supple, no JVD. RESPIRATORY: Normal breathing efforts, no accessory muscle use, clear to auscultation bilaterally, no wheezes or rales. CARDIOVASCULAR: S1, S2 normal, rate rhythm regular. EXTREMITY: No lower extremity edema NEURO: speech fluent. PSYCHIATRY: Normal mood and judgment Social History Smokeless Tobacco Use: No Alcohol Use: none Drug Use: none Marital Status: Housing Status: lives with family Occupation: retired Laboratory Results Past 24 Hours 12/15/17 05:39 12/14/17 12:02 12/14/17 15:58 12/15/17 05:39 Test 12/14/17 12:02 12/14/17 15:58 12/15/17 05:39 Anion Gap 8.0 mmol/L (3-11) 8.0 mmol/L (3-11) 8.0 mmol/L (3-11) Est Creatinine Clear Calc Drug Dose 16.8 ml/min 19.5 ml/min 27.8 ml/min Estimated GFR () 15.2 18.2 28.1 Estimated GFR (Non- 13.1 15.7 24.2 BUN/Creatinine Ratio 16.9 (10-20) 18.7 (10-20) 18.0 (10-20) Calcium Level 7.4 mg/dl (8.5-10.1) 7.4 mg/dl (8.5-10.1) 7.3 mg/dl (8.5-10.1) Red Blood Count 3.79 M/uL (4.7-6.1) Mean Corpuscular Volume 91.6 fL (80-100) Mean Corpuscular Hemoglobin 31.4 pg (25-34) Mean Corpuscular Hemoglobin Concent 34.3 g/dl (32-36) RDW Standard Deviation 45.5 fL (36.4-46.3) RDW Coefficient of Variation 13.9 % (11.5-14.5) Mean Platelet Volume 9.6 fL (7.4-10.4) Allergies Coded Allergies: Penicillins (Verified Allergy, Severe, HIVES, 12/13/17) Sulfamethoxazole (Verified Allergy, Mild, rash, 12/13/17) Trimethoprim (Verified Allergy, Mild, rash, 12/13/17) Gentamicin (Verified Allergy, Unknown, RASH, 12/13/17) Sulfa Antibiotics (Verified Allergy, Unknown, RASH, 12/13/17) Medications Current Inpatient Medications Medications (Trade) Dose Ordered Sig/Simon Route Start Time Stop Time Status Last Admin Dose Admin Acetaminophen (Tylenol Tab) 650 mg Q4H PRN PO 12/13/17 10:45 01/12/18 10:44 Al Hydrox/Mg Hydrox/Simethicone (Maalox Max Susp) 15 ml Q4H PRN PO 12/13/17 10:45 01/12/18 10:44 Magnesium Hydroxide (Milk Of Magnesia Susp) 30 ml Q12H PRN PO 12/13/17 10:45 01/12/18 10:44 Ondansetron HCl (Zofran Inj) 4 mg Q6H PRN IV 12/13/17 10:45 01/12/18 10:44 Polyethylene (Miralax Powder Packet) 17 gm DAILY PRN PO 12/13/17 10:45 01/12/18 10:44 Amlodipine Besylate (Norvasc Tab) 10 mg DAILY PO 12/14/17 09:00 01/13/18 08:59 12/15/17 08:41 10 MG Atorvastatin Calcium (Lipitor Tab) 10 mg HS PO 12/13/17 21:00 01/12/18 20:59 12/14/17 19:51 10 MG Cholecalciferol (Vitamin D Tab) 1,000 inter.unit DAILY PO 12/14/17 09:00 01/13/18 08:59 12/15/17 08:41 1,000 INTER.UNIT Metoprolol Tartrate (Lopressor Tab) 100 mg BID PO 12/13/17 21:00 01/12/18 20:59 12/15/17 08:41 100 MG Finasteride (Proscar Tab) 5 mg QAM PO 12/14/17 09:00 01/13/18 08:59 12/15/17 08:41 5 MG Tamsulosin HCl (Flomax Cap) 0.4 mg HS PO 12/13/17 21:00 01/12/18 20:59 12/14/17 19:51 0.4 MG Hydralazine HCl (HydrALAZINE INJ) 20 mg Q6 PRN IV. 12/14/17 07:30 01/13/18 07:29 Ergocalciferol (Vitamin D Cap) 50,000 interunit Q7D PO 12/14/17 13:00 01/13/18 12:59 12/14/17 13:47 50,000 INTERUNIT Spironolactone (Aldactone Tab) 25 mg QAM PO 12/15/17 09:30 01/14/18 09:29 Impression (1) Acute renal failure (2) Hyperkalemia (3) Bladder outflow obstruction (4) Metabolic acidosis (5) Hypertension (6) Hyponatremia 82 yoM with acute kidney injury and significant metabolic abnormality in the setting bladder outlet obstruction. 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 Presented with more than a week history of generalized weakness and gross hematuria. Kaur catheter was placed with 3 liters of urine output. Acute kidney injury secondary to obstructive uropathy with significant electrolyte abnormality. Received Kayexalate. TODAY with significant improvement in Cr 2.4 and electrolyte abnormalities resolved except for mild hyponatremia of 133 Recommendations --renal function improved significantly and electrolyte abnormalities resolved except for mild hyponatremia of 133 --ergo calciferol 57574 units weekly for 12 weeks --continue on Kaur catheter as per Urology recommendation --Follow up BMP this Wednesday and next week --Resume Spironolactone --Follow up in 3-4 weeks and ok for discharge from nephro stand point Pt was sen and examined with Dr. John, agree with above plan.
[2017-12-15] MEDS ORDERED: PRS5 PO (10:19)
[2017-12-15] MEDS ORDERED: FLM4 PO (10:19)
[2017-12-15] MEDS ORDERED: POTASSIUM CHLORIDE 20 MEQ TABCR PO ONE (15:45)
--- NOTE | 2017-12-15 16:45 | Cardiology Consultation ---
Cardiology Consultation Date of Consultation: Dec 15, 2017. Requesting Physician: Dr. Rojas Reason for Consultation: Paroxysmal tachycardia Pt evaluation today including: conversation w/ patient, physical exam, lab review, review of studies, review of inpatient medication list, conversation w/ attending History of Present Illness This is a very pleasant 82-year-old gentleman who has a history of hypertension , hyperlipidemia and reported diastolic dysfunction who presented with weakness and fatigue and was in acute renal failure and hyperkalemic. From the cardiovascular standpoint he has not had any difficulty that he is aware of, he denies symptoms of palpitations in the past, he believes he had a stress test on a bicycle sometime in the early 1980s but does not think he has had any cardiac studies since. He has been in the hospital since December 13, 2017 and has been on telemetry. He does have conduction abnormalities on premature atrial beats but was not having much in the way of arrhythmias until today when he was observed to have runs of wide-complex tachycardia. He was unaware of this, he denies having palpitations, lightheadedness or dizziness though she did with this arrhythmia. Past Medical/Surgical History Hypertension Hypercholesterolemia Social History Smoking Status: Former Smoker Review of Systems Constitutional: No fever, No weight loss, No weakness Respiratory: No shortness of breath Cardiac: No chest pain Abdomen: No pain, No nausea, No vomiting, No diarrhea, No GI bleeding Male : No urinary frequency, No nocturia more than once/night, No slowing stream, No sexual dysfunction Neurologic: No paralysis, No weakness, No numbness/tingling, No balance problems Heme: No abnormal bleeding/bruising, No clotting problems Endo: No fatigue Skin: No problem reported All Other Systems: Reviewed and Negative Allergies Coded Allergies: Penicillins (Verified Allergy, Severe, HIVES, 12/13/17) Sulfamethoxazole (Verified Allergy, Mild, rash, 12/13/17) Trimethoprim (Verified Allergy, Mild, rash, 12/13/17) Gentamicin (Verified Allergy, Unknown, RASH, 12/13/17) Sulfa Antibiotics (Verified Allergy, Unknown, RASH, 12/13/17) Medications Current Inpatient Medications Medications (Trade) Dose Ordered Sig/Simon Route Start Time Stop Time Status Last Admin Dose Admin Acetaminophen (Tylenol Tab) 650 mg Q4H PRN PO 12/13/17 10:45 01/12/18 10:44 Al Hydrox/Mg Hydrox/Simethicone (Maalox Max Susp) 15 ml Q4H PRN PO 12/13/17 10:45 01/12/18 10:44 Magnesium Hydroxide (Milk Of Magnesia Susp) 30 ml Q12H PRN PO 12/13/17 10:45 01/12/18 10:44 Ondansetron HCl (Zofran Inj) 4 mg Q6H PRN IV 12/13/17 10:45 01/12/18 10:44 Polyethylene (Miralax Powder Packet) 17 gm DAILY PRN PO 12/13/17 10:45 01/12/18 10:44 Amlodipine Besylate (Norvasc Tab) 10 mg DAILY PO 12/14/17 09:00 01/13/18 08:59 12/15/17 08:41 10 MG Atorvastatin Calcium (Lipitor Tab) 10 mg HS PO 12/13/17 21:00 01/12/18 20:59 12/14/17 19:51 10 MG Cholecalciferol (Vitamin D Tab) 1,000 inter.unit DAILY PO 12/14/17 09:00 01/13/18 08:59 12/15/17 08:41 1,000 INTER.UNIT Metoprolol Tartrate (Lopressor Tab) 100 mg BID PO 12/13/17 21:00 01/12/18 20:59 12/15/17 08:41 100 MG Finasteride (Proscar Tab) 5 mg QAM PO 12/14/17 09:00 01/13/18 08:59 12/15/17 08:41 5 MG Tamsulosin HCl (Flomax Cap) 0.4 mg HS PO 12/13/17 21:00 01/12/18 20:59 12/14/17 19:51 0.4 MG Hydralazine HCl (HydrALAZINE INJ) 20 mg Q6 PRN IV. 12/14/17 07:30 01/13/18 07:29 Ergocalciferol (Vitamin D Cap) 50,000 interunit Q7D PO 12/14/17 13:00 01/13/18 12:59 12/14/17 13:47 50,000 INTERUNIT Spironolactone (Aldactone Tab) 25 mg QAM PO 12/15/17 09:30 01/14/18 09:29 12/15/17 10:13 25 MG Physical Exam Vital Signs Past 12 Hours Date Time Temp Pulse Resp B/P (MAP) Pulse Ox O2 Delivery O2 Flow Rate FiO2 12/15/17 15:21 36.6 81 20 169/68 (101) 91 Room Air 12/15/17 12:37 36.6 79 16 152/73 (99) 91 Room Air 12/15/17 08:00 94 Room Air 12/15/17 07:10 36.4 76 20 168/65 (99) 94 Room Air Constitutional: General Apperance: overweight Level of Distress: NAD Psychiatric: Mental Status: active & alert Head: normocephalic Eyes: EOM: EOMI ENMT: normal ENT inspection, hearing grossly normal Neck: supple, no masses Lungs: Respiratory effort: no dyspnea, good air movement Auscultation: breath sounds normal, no wheezing Cardiovascular: Heart Auscultation: RRR, no murmurs, no rubs, no gallops Peripheral Pulses: Bruits: none appreciated Abdomen: Bowel Sounds: normal Inspection & Palpation: soft, no tenderness, guarding & rebound, no masses Musculoskeletal: normal strength (5/5 throughout) Extremities: no edema Neurologic: Cranial Nerves: grossly intact Sensation: grossly intact Data Laboratory Results: Last 24 Hours Test 12/15/17 05:39 White Blood Count 10.57 K/uL Red Blood Count 3.79 M/uL Hemoglobin 11.9 g/dL Hematocrit 34.7 % Mean Corpuscular Volume 91.6 fL Mean Corpuscular Hemoglobin 31.4 pg Mean Corpuscular Hemoglobin Concent 34.3 g/dl RDW Standard Deviation 45.5 fL RDW Coefficient of Variation 13.9 % Platelet Count 215 K/uL Mean Platelet Volume 9.6 fL Sodium Level 133 mmol/L Potassium Level 3.7 mmol/L Chloride Level 104 mmol/L Carbon Dioxide Level 21 mmol/L Anion Gap 8.0 mmol/L Blood Urea Nitrogen 43 mg/dl Creatinine 2.40 mg/dl Est Creatinine Clear Calc Drug Dose 27.8 ml/min Estimated GFR () 28.1 Estimated GFR (Non- 24.2 BUN/Creatinine Ratio 18.0 Random Glucose 114 mg/dl Calcium Level 7.3 mg/dl Magnesium Level 1.7 mg/dl EKG: From this morning sinus rhythm with right bundle branch block and left anterior fascicular block, normal DE. Premature atrial beats. Telemetry reviewed: Sinus rhythm with an IVCD, several runs of tachycardia up to about 16 beats in duration. These are wide however they are very similar to his conduction pattern in sinus rhythm and I believe are supraventricular in origin. There was one 8 beat run of a different morphology which might be ventricular. Assessment & Plan 1. Paroxysmal tachycardia: Based on morphology on telemetry I believe this is supraventricular, it is suggestive of a PAT although I cannot exclude a reentrant arrhythmia. He has very frequent premature atrial beats as well. There was one brief run of a different morphology which could be ventricular in origin. All of these runs occurred today, before that he had little in the way of paroxysmal tachycardia. His potassium has dropped substantially and although it is still technically normal I agreed that that may be contributory. I would maintain his Lopressor which she has been on for many years, he is also on amlodipine for blood pressure and it may be reasonable to switch this to diltiazem 180 mg daily. Other than that I would simply observe to see whether this continues. Prolonged episodes (30 seconds or symptomatic) can be treated with amiodarone but I would not do that at this time. 2. Bifascicular block: He has right bundle branch block and left anterior fascicular block but a normal DE interval and no symptoms to suggest heart block and he has not had heart block on the monitor. I would observe closely with addition of diltiazem but that should not affect intraventricular conduction. I think it would be prudent to get an echocardiogram to make sure he has reasonable left ventricular function. Thank you for allowing me to participate in his care.
--- NOTE | 2017-12-15 17:17 | Hospitalist Progress Note ---
Hospitalist Progress Note Date of Service Dec 15, 2017. Subjective Pt evaluation today including: conversation w/ patient, physical exam, chart review, lab review, conversation w/ weight loss consultant, review of inpatient medication list Pain: None PO Intake: Tolerating PO diet Voiding: powell catheter in place Patient reports feeling well. He denies any chest pain, palpitations, shortness of breath, weakness or fatigue. He states he feels well and wants to go home. The patient has not been symptomatic during any episodes of his SVT/ PAT. He continues to complain of diarrhea. The patient denies fevers, chills, sweats, chest pain, palpitations, claudication, cough, wheezing, shortness of breath, nausea, vomiting, abdominal pain, dysuria, hematuria, urinary retention , paralysis, weakness, numbness and tingling. Additional Comments: See HPI for pertinent positives and negatives. All other systems reviewed and negative. Objective Vital Signs Date Time Temp Pulse Resp B/P (MAP) Pulse Ox O2 Delivery O2 Flow Rate FiO2 12/15/17 15:21 36.6 81 20 169/68 (101) 91 Room Air 12/15/17 12:37 36.6 79 16 152/73 (99) 91 Room Air 12/15/17 08:00 94 Room Air 12/15/17 07:10 36.4 76 20 168/65 (99) 94 Room Air 12/15/17 03:40 36.5 71 18 164/67 (99) 94 Room Air 12/14/17 23:59 Room Air 12/14/17 23:50 36.7 59 18 136/84 (101) 94 Room Air 12/14/17 19:05 36.7 70 18 148/66 (93) 94 Room Air Physical Exam Notes: General appearance: +Obese. Well-developed, well-nourished, no apparent distress Head: Normocephalic, atraumatic Eyes: Normal inspection, PERRL, EOMI ENT: Normal ENT inspection, hearing grossly normal, pharynx normal Neck: Supple, no JVD, trachea midline Respiratory/Chest: +Decreased breath sounds. Lungs clear to auscultation, no respiratory distress Cardiovascular: +Paroxysmal tachycardia. No gallop, no murmur Abdomen/GI: Normal bowel sounds, non-tender, soft Extremities/Musculoskeletal: +RLE greater than LLE due to defect. No calf tenderness, no pedal edema. Neurological/Psych: Alert, normal mood/affect, oriented x 3 Skin: Normal color, warm/dry, no rash Laboratory Results Last 24 Hours Test 12/15/17 05:39 White Blood Count 10.57 K/uL Red Blood Count 3.79 M/uL Hemoglobin 11.9 g/dL Hematocrit 34.7 % Mean Corpuscular Volume 91.6 fL Mean Corpuscular Hemoglobin 31.4 pg Mean Corpuscular Hemoglobin Concent 34.3 g/dl RDW Standard Deviation 45.5 fL RDW Coefficient of Variation 13.9 % Platelet Count 215 K/uL Mean Platelet Volume 9.6 fL Sodium Level 133 mmol/L Potassium Level 3.7 mmol/L Chloride Level 104 mmol/L Carbon Dioxide Level 21 mmol/L Anion Gap 8.0 mmol/L Blood Urea Nitrogen 43 mg/dl Creatinine 2.40 mg/dl Est Creatinine Clear Calc Drug Dose 27.8 ml/min Estimated GFR () 28.1 Estimated GFR (Non- 24.2 BUN/Creatinine Ratio 18.0 Random Glucose 114 mg/dl Calcium Level 7.3 mg/dl Magnesium Level 1.7 mg/dl Assessment and Plan 82 y/o male with a 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 Pt afebrile, VSS on arrival. CT of abdomen/pelvis shows marked bladder distention consistent w/bladder outlet obstruction, mild hydronephrosis, fecal impaction of rectum and low sigmoid, and mild nonobstructive ileus. CXR shows minimal interstitial infiltrate of left base superimposed on chronic interstitial change, slightly progressive superior mediastinal fullness and unchanged nodularity of left upper lobe. EKG no ischemic changes. Creatinine significantly elevated above baseline at 12.6, BUN 137. Potassium 6.8. Sodium 126. UA positive for 3+ blood. Acute renal failure on CKD stage III, s/p right nephrectomy, bladder outlet obstruction w/urinary retention--improving -Admit to telemetry. Pt w/multiple runs of SVT throughout the day, otherwise SR with HR 70s-80s -ARF likely secondary to bladder outlet obstruction/urinary retention and hydro -Consult nephrology, appreciate recs: Resume spironolactone. F/u in 3-4 weeks. Ok to discharge from nephrology standpoint -Calcium low at 7.6, vitamin D low at 21.2 -PTH elevated at 139.8 -Ergocalciferol 13921 PO weekly x 12 weeks per nephro -Consult urology, appreciate recs: Hematuria resolved. UC&S is negative. Cytology showing reactive urothelial cells. No high grade urothelial carcinoma seen. Recommend the pt have an outpatient cysto for further evaluation of gross hematuria and HERNANDEZ. Will schedule outpt f/u. to sign off at this time. -PSA WNL -Creatinine 2.40 on 12/15, down from 5.54 -Urine culture negative -Urine cytology shows acute inflammation/reactive cells, no carcinoma SVT/PAT -Pt w/multiple runs of SVT, pt asymptomatic -Potassium 3.8, magnesium 1.7 -KCl 20 mEq PO x 1 as pt was not having this arrhythmia while potassium was over 4 -Magnesium 1 gm IV x1 -Cardiology consulted, appreciate recs: Spoke with Dr. Mckeon. Tachycardia appears to be SVT rather than v-tach. Would obtain echocardiogram and continue current dose of Lopressor. Could change amlodipine to diltiazem and monitor response. -Echo ordered -D/C amlodipine, start diltiazem 180 mg PO qd Hyperkalemia--resolved -Potassium 3.8 on 12/15, down from 4.3 -Given Kayexalate 15 gm in ED, then another 30 gm by nephro on 12/13 Hyponatremia--stable -Sodium 133 on 12/15 HTN, HLD--stable -Continue Lopressor 100 mg PO BID and Lipitor 10 mg PO qd -Norvasc changed to diltiazem as above Diastolic dysfunction, peripheral edema-- -Spironolactone resumed per nephro BPH, hematuria -Consult urology as above -Flomax and Proscar as above -Hematuria resolved -Hgb remains stable DVT prophylaxis -Hold chemical ppx for now -AIYANA hose and SCDs Code Status -Level V, DO NOT RESUSCITATE Dispo -Lives at home w/, uses walker and cane to walk -2 recent falls due to weakness, PT/OT evaluate and treat -Case management consulted for discharge planning -OT recommends inpatient rehab. PT eval recommends home w/home PT -Pt not agreeable to rehab
[2017-12-15] MEDS ORDERED: MAGNESIUM SULFATE 1GM / D5W 100 ML IV ONE (17:30)
[2017-12-15] MEDS: TAMSULOSIN HCL 0.4 MG CAP PO SCH (20:51)
[2017-12-15] MEDS: ATORVASTATIN 10 MG TAB PO SCH (20:52)
[2017-12-16 04:04] VITALS: BP 147/76; PULSE 99; TEMP 36.7; O2SAT 95
[2017-12-16 06:52] LABS: HEMATOCRIT 36.1 % (42-52); HEMOGLOBIN 12.4 g/dL (14.0-18.0); MEAN CELL VOLUME 92.6 fL (80-100); MEAN CORPUSCULAR HEMOGLOBIN 31.8 pg (25-34); MEAN CORPUSCULAR HGB CONC 34.3 g/dl (32-36); MEAN PLATELET VOLUME 9.8 fL (7.4-10.4); PLATELET COUNT 226 K/uL (130-400); RED CELL DISTRIBUTION WIDTH CV 13.9 % (11.5-14.5); RED CELL DISTRIBUTION WIDTH SD 46.4 fL (36.4-46.3); WHITE BLOOD COUNT 10.68 K/uL (4.8-10.8)
[2017-12-16 06:59] VITALS: BP 126/63; PULSE 116; TEMP 36.5; O2SAT 94
[2017-12-16 07:26] LABS: CALCIUM 7.2 mg/dl (8.5-10.1); CREATININE 1.75 mg/dl (0.60-1.40); POTASSIUM 3.8 mmol/L (3.5-5.1)
[2017-12-16] MEDS: CHOLECALCIFEROL 1000 INTER.UNIT TAB PO SCH (07:59)
[2017-12-16] MEDS: FINASTERIDE 5 MG TAB PO SCH (07:59)
[2017-12-16] MEDS: METOPROLOL TARTRATE 100 MG TAB PO SCH ×2 (08:00→21:03)
[2017-12-16] MEDS ORDERED: DILTIAZEM HCL 180 MG CAPCR PO SCH (09:00)
[2017-12-16] MEDS: SPIRONOLACTONE 25 MG TAB PO SCH (09:16)
[2017-12-16] MEDS ORDERED: MAGNESIUM SULFATE 1GM / D5W 100 ML IV SCH (09:45)
--- NOTE | 2017-12-16 10:26 | Nephrology Progress Note ---
Nephrology Progress Note Date of Service Dec 16, 2017. Chief Complaint F/U for acute kidney injury, hyperkalemia and metabolic acidosis. Subjective Mr. Yang was seen and examined in his room this am. He denied any shortness of breath or chest pain. Otherwise asymptomatic. Has Kaur catheter with great urine output. Renal function improved significantly creatinine down to 1.7 ( baseline), electrolyte abnormality improved as well, potassium and bicarb normalized, serum sodium improved to 134. Interval hx: Pt had asytmptomatic SVT on monitor. Cardiology on board and work up pending. Review of Systems all other ROS negative except for as above A complete review of systems was performed. Pertinent positives are noted above. All other systems are negative. Vital Signs Last 8 Hrs Date Time Temp Pulse Resp B/P (MAP) Pulse Ox O2 Delivery O2 Flow Rate FiO2 12/16/17 09:00 Room Air 12/16/17 06:59 36.5 116 18 126/63 (84) 94 Room Air 12/16/17 04:04 36.7 99 16 147/76 (99) 95 Room Air I & O UOP 3450cc Last Recorded Weight Weight (Kilograms): 96.600 Physical Exam General Appearance: + obese GENERAL: Elderly male, AAA x 3, pleasant, healthy-appearing, not in any distress. NECK: Supple, no JVD RESPIRATORY: Normal breathing efforts, no accessory muscle use, clear to auscultation bilaterally, no wheezes or rales. CARDIOVASCULAR: S1, S2 normal, slightly tachycardic this AM on exam EXTREMITY: No lower extremity edema NEURO: speech fluent. PSYCHIATRY: Normal mood and judgment Social History Smokeless Tobacco Use: No Alcohol Use: none Drug Use: none Marital Status: Housing Status: lives with family Occupation: retired Laboratory Results Past 24 Hours 12/16/17 06:07 12/16/17 06:07 Test 12/16/17 06:07 Red Blood Count 3.90 M/uL (4.7-6.1) Mean Corpuscular Volume 92.6 fL (80-100) Mean Corpuscular Hemoglobin 31.8 pg (25-34) Mean Corpuscular Hemoglobin Concent 34.3 g/dl (32-36) RDW Standard Deviation 46.4 fL (36.4-46.3) RDW Coefficient of Variation 13.9 % (11.5-14.5) Mean Platelet Volume 9.8 fL (7.4-10.4) Anion Gap 6.0 mmol/L (3-11) Est Creatinine Clear Calc Drug Dose 37.9 ml/min Estimated GFR () 41.1 Estimated GFR (Non- 35.5 BUN/Creatinine Ratio 16.0 (10-20) Calcium Level 7.2 mg/dl (8.5-10.1) Magnesium Level 1.7 mg/dl (1.8-2.4) Allergies Coded Allergies: Penicillins (Verified Allergy, Severe, HIVES, 12/13/17) Sulfamethoxazole (Verified Allergy, Mild, rash, 12/13/17) Trimethoprim (Verified Allergy, Mild, rash, 12/13/17) Gentamicin (Verified Allergy, Unknown, RASH, 12/13/17) Sulfa Antibiotics (Verified Allergy, Unknown, RASH, 12/13/17) Medications Current Inpatient Medications Medications (Trade) Dose Ordered Sig/Simon Route Start Time Stop Time Status Last Admin Dose Admin Acetaminophen (Tylenol Tab) 650 mg Q4H PRN PO 12/13/17 10:45 01/12/18 10:44 Al Hydrox/Mg Hydrox/Simethicone (Maalox Max Susp) 15 ml Q4H PRN PO 12/13/17 10:45 01/12/18 10:44 Magnesium Hydroxide (Milk Of Magnesia Susp) 30 ml Q12H PRN PO 12/13/17 10:45 01/12/18 10:44 Ondansetron HCl (Zofran Inj) 4 mg Q6H PRN IV 12/13/17 10:45 01/12/18 10:44 Polyethylene (Miralax Powder Packet) 17 gm DAILY PRN PO 12/13/17 10:45 01/12/18 10:44 Atorvastatin Calcium (Lipitor Tab) 10 mg HS PO 12/13/17 21:00 01/12/18 20:59 12/15/17 20:52 10 MG Cholecalciferol (Vitamin D Tab) 1,000 inter.unit DAILY PO 12/14/17 09:00 01/13/18 08:59 12/16/17 07:59 1,000 INTER.UNIT Metoprolol Tartrate (Lopressor Tab) 100 mg BID PO 12/13/17 21:00 01/12/18 20:59 12/16/17 08:00 100 MG Finasteride (Proscar Tab) 5 mg QAM PO 12/14/17 09:00 01/13/18 08:59 12/16/17 07:59 5 MG Tamsulosin HCl (Flomax Cap) 0.4 mg HS PO 12/13/17 21:00 01/12/18 20:59 12/15/17 20:51 0.4 MG Hydralazine HCl (HydrALAZINE INJ) 20 mg Q6 PRN IV. 12/14/17 07:30 01/13/18 07:29 Ergocalciferol (Vitamin D Cap) 50,000 interunit Q7D PO 12/14/17 13:00 01/13/18 12:59 12/14/17 13:47 50,000 INTERUNIT Spironolactone (Aldactone Tab) 25 mg QAM PO 12/15/17 09:30 01/14/18 09:29 12/16/17 09:16 25 MG Diltiazem HCl (Cardizem Cd Cap) 180 mg QAM PO 12/16/17 09:00 01/15/18 08:59 12/16/17 08:00 180 MG Magnesium Sulfate 100 ml @ 100 mls/hr TODAY@0945 IV 12/16/17 09:45 12/16/17 12:00 Impression (1) Acute renal failure (2) Hyperkalemia (3) Bladder outflow obstruction (4) Metabolic acidosis (5) Hypertension (6) Hyponatremia 82 yoM with acute kidney injury and significant metabolic abnormality in the setting bladder outlet obstruction. 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 Presented with more than a week history of generalized weakness and gross hematuria. Kaur catheter was placed with 3 liters of urine output. Acute kidney injury secondary to obstructive uropathy with significant electrolyte abnormality and metabolic acidosis. Received Kayexalate. TODAY with continued improvement in Cr to 1.7 (back to baseline) and electrolyte abnormalities resolved except for improving mild hyponatremia of 134. Continues to have SVT Recommendations --renal function improved significantly and electrolyte abnormalities resolved except for mild hyponatremia of 134 --ergo calciferol 11777 units weekly for 12 weeks --continue on Kaur catheter as per Urology recommendation --Resume Spironolactone --Follow up in 3-4 weeks and ok for discharge from nephro stand point whenever ready from a primary and cardiac stand point Pt was seen and examined with Dr. John, agree with above plan.
[2017-12-16 11:50] VITALS: BP 126/54; PULSE 77; TEMP 36.4; O2SAT 95
--- NOTE | 2017-12-16 12:51 | ECHOCARDIOGRAM REPORT ---
*NOTICE TO RECEIVING [employer] This information is strictly Confidential and protected under [place] law. [place] law prohibits you from making any further disclosure of this information unless further disclosure is expressly permitted by the written consent of the person to whom it pertains or is authorized by law. A general authorization for the release of medical or other information is not sufficient for this purpose. Hospital accepts no responsibility if the information is made available to any other person, INCLUDING THE PATIENT. Interpretation Summary * Name: MONIKA WAYNE Study Date: 12/16/2017 09:53 AM BP: 169/68 mmHg * Patient Location: C.2T\S\S233\S\1 HR: 81 * : 1935 (M/d/yyyy) Gender: Male Height: 70 in * Age: 82 yrs Ethnicity: [place] Weight: 215 lb * Ordering Physician: Stephan Mckeon * Performed By: Nell Askew RDCS * * Reason For Study: SVT * BSA: 2.2 m2 * -- Conclusions -- * There is moderate concentric left ventricular hypertrophy. * Left ventricular systolic function is normal. * The right ventricular systolic function is mildly reduced. * The left atrium is mildly dilated. * There is mild mitral regurgitation. * Right ventricular systolic pressure is normal. Procedure Details * A complete two-dimensional transthoracic echocardiogram was performed (2D, M-mode, Doppler and color flow Doppler). * The study was technically difficult. * A contrast injection of Definity was performed to improve assessment of LV function. * Contrast was injected into an intravenous site in the right arm. * One vial of Definity ultrasound contrast was diluted in normal saline to a total volume of 10 ml. A total of '2.5' ml of solution was administered during imaging. * Lot # [id number] of Definity utilized for procedure. * Expiration date 12/02. * The attending nurse who injected the contrast agent was NINI RAMIREZ RN. Left Ventricle * The left ventricle is normal in size. * There is moderate concentric left ventricular hypertrophy. * Ejection Fraction = 55-60%. * Left ventricular systolic function is normal. * The left ventricular wall motion is normal. Right Ventricle * The right ventricle is normal size. * The right ventricular systolic function is mildly reduced. * The right ventricular systolic function is reduced as assessed by tricuspid annular plane systolic excursion (TAPSE) (TAPSE <1.6 cm). Atria * The left atrium is mildly dilated. * Right atrial size is normal. Mitral Valve * The mitral valve is grossly normal. * There is mild mitral regurgitation. Tricuspid Valve * The tricuspid valve is not well visualized, but is grossly normal. * There is mild tricuspid regurgitation. * Right ventricular systolic pressure is normal. Aortic Valve * The aortic valve is normal in structure and function. * No hemodynamically significant valvular aortic stenosis. * There is no significant aortic regurgitation. Pulmonic Valve * The pulmonic valve is not well visualized. Pericardium/Pleural * There is no pericardial effusion. MMode 2D Measurements and Calculations IVSd 1.7 cm IVSs 2.9 cm LVIDd 4.6 cm LVIDs 2.7 cm LVPWd 1.5 cm LVPWs 1.8 cm IVS/LVPW 1.2 FS 42.5 % EDV(Teich) 99.7 ml ESV(Teich) 26.3 ml EF(Teich) 73.6 % EDV(cubed) 100.3 ml ESV(cubed) 19.0 ml EF(cubed) 81.0 % % IVS thick 68.2 % % LVPW thick 21.7 % LV mass(C)d 319.3 grams LV mass(C)dI 148.4 grams/m\S\2 LV mass(C)s 318.6 grams LV mass(C)sI 148.0 grams/m\S\2 SV(Teich) 73.4 ml SI(Teich) 34.1 ml/m\S\2 SV(cubed) 81.3 ml SI(cubed) 37.8 ml/m\S\2 ACS 1.8 cm asc Aorta Diam 2.9 cm LVOT diam 1.9 cm LVOT area 2.9 cm\S\2 LVAd ap4 35.8 cm\S\2 LVLd ap4 9.3 cm EDV(MOD-sp4) 113.5 ml EDV(sp4-el) 117.1 ml LVAs ap4 16.4 cm\S\2 LVLs ap4 7.2 cm ESV(MOD-sp4) 30.6 ml ESV(sp4-el) 31.7 ml EF(MOD-sp4) 73.0 % EF(sp4-el) 72.9 % LVAd ap2 26.3 cm\S\2 LVLd ap2 8.2 cm EDV(MOD-sp2) 68.8 ml EDV(sp2-el) 71.2 ml LVAs ap2 15.2 cm\S\2 LVLs ap2 7.2 cm ESV(MOD-sp2) 26.3 ml ESV(sp2-el) 27.0 ml EF(MOD-sp2) 61.8 % EF(sp2-el) 62.0 % LVLd %diff -12.87 % EDV(MOD-bp) 93.2 ml LVLs %diff 0.25 % ESV(MOD-bp) 28.6 ml EF(MOD-bp) 69.3 % SV(MOD-sp4) 82.9 ml SI(MOD-sp4) 38.5 ml/m\S\2 SV(MOD-sp2) 42.5 ml SI(MOD-sp2) 19.8 ml/m\S\2 SV(MOD-bp) 64.6 ml SI(MOD-bp) 30.0 ml/m\S\2 SV(sp4-el) 85.4 ml SI(sp4-el) 39.7 ml/m\S\2 SV(sp2-el) 44.2 ml SI(sp2-el) 20.5 ml/m\S\2 Doppler Measurements and Calculations MV E max erick 77.2 cm/sec MV dec time 0.25 sec Ao V2 max 206.0 cm/sec Ao max PG 17.0 mmHg Ao max PG (full) 7.1 mmHg WAYLON(V,A) 2.2 cm\S\2 WAYLON(V,D) 2.2 cm\S\2 LV V1 max PG 9.9 mmHg LV V1 max 157.5 cm/sec PA V2 max 92.7 cm/sec PA max PG 3.4 mmHg TR max erick 243.6 cm/sec
[2017-12-16 15:13] VITALS: BP 133/69; PULSE 78; TEMP 36.5; O2SAT 94
--- NOTE | 2017-12-16 16:22 | Cardiology Follow-Up ---
Subjective Date of Service: Dec 16, 2017. Pt evaluation today including: conversation w/ patient, conversation w/ family , physical exam, lab review, review of studies, review of inpatient medication list History of Present Illness This is a very pleasant 82-year-old gentleman who has a history of hypertension , hyperlipidemia and reported diastolic dysfunction who presented with weakness and fatigue and was in acute renal failure and hyperkalemic. From the cardiovascular standpoint he has not had any difficulty that he is aware of, he denies symptoms of palpitations in the past, he believes he had a stress test on a bicycle sometime in the early 1980s but does not think he has had any cardiac studies since. He has been in the hospital since December 13, 2017 and has been on telemetry. He does have conduction abnormalities on premature atrial beats but was not having much in the way of arrhythmias until yesterday when he was observed to have runs of wide-complex tachycardia. He was unaware of this, he denies having palpitations, lightheadedness or dizziness. For the most part the wide-complex rhythm appeared to be atrial rhythm with a conduction pattern very similar to his intrinsic which is wide. We therefore plan to change his calcium nkechi to diltiazem from amlodipine, however that started today as he already had amlodipine yesterday. Last evening at around 1700 he went into atrial fibrillation with a somewhat fast heart rate. He remains unaware of his arrhythmia and remains in atrial fibrillation. He may well have had this arrhythmia before, it may not be new. He also is complaining of explosive diarrhea ever since coming into the hospital, that is actually his biggest complaint. He denies further hematuria. Social History Smoking Status: Former Smoker Review of Systems Respiratory: No shortness of breath Cardiac: No chest pain Medications Cardiovascular: Item Value Date Time Diltiazem HCl 180 mg 12/16/17 0900 (Cardizem Cd Cap) QAM/PO 12/16/17 0800 Atorvastatin 10 mg 12/13/17 2100 Calcium HS/PO 12/15/172051 (Lipitor Tab) Metoprolol 100 mg 12/13/17 2100 Tartrate BID/PO 12/16/17 0800 (Lopressor Tab) Objective Vital Signs Past 12 Hours Date Time Temp Pulse Resp B/P (MAP) Pulse Ox O2 Delivery O2 Flow Rate FiO2 12/16/17 15:13 36.5 78 18 133/69 (90) 94 Room Air 12/16/17 11:50 36.4 77 18 126/54 (78) 95 Room Air 12/16/17 09:00 Room Air 12/16/17 06:59 36.5 116 18 126/63 (84) 94 Room Air Last Recorded Weight-Kilograms: 96.600 Intake & Output 8-Hour Column 12/16/17 12/17/17 12/17/17 16:00 00:00 08:00 Intake Total 440 ml Output Total 500 ml Balance -60 ml 24-Hour Column 12/17/17 08:00 Intake Total 440 ml Output Total 500 ml Balance -60 ml Physical Exam Constitutional: General Apperance: overweight Level of Distress: NAD Lungs: Respiratory effort: no dyspnea, good air movement Auscultation: breath sounds normal, no wheezing Cardiovascular: Heart Auscultation: no murmurs, no rubs, no gallops, irregular rate rhythm Peripheral Pulses: Bruits: none appreciated Extremities: no edema Data Laboratory Results: Last 24 Hours Test 12/16/17 06:07 White Blood Count 10.68 K/uL Red Blood Count 3.90 M/uL Hemoglobin 12.4 g/dL Hematocrit 36.1 % Mean Corpuscular Volume 92.6 fL Mean Corpuscular Hemoglobin 31.8 pg Mean Corpuscular Hemoglobin Concent 34.3 g/dl RDW Standard Deviation 46.4 fL RDW Coefficient of Variation 13.9 % Platelet Count 226 K/uL Mean Platelet Volume 9.8 fL Sodium Level 134 mmol/L Potassium Level 3.8 mmol/L Chloride Level 105 mmol/L Carbon Dioxide Level 23 mmol/L Anion Gap 6.0 mmol/L Blood Urea Nitrogen 28 mg/dl Creatinine 1.75 mg/dl Est Creatinine Clear Calc Drug Dose 37.9 ml/min Estimated GFR () 41.1 Estimated GFR (Non- 35.5 BUN/Creatinine Ratio 16.0 Random Glucose 146 mg/dl Calcium Level 7.2 mg/dl Magnesium Level 1.7 mg/dl Imaging: Echocardiography shows good left ventricular function, some left atrial enlargement but no significant valvular abnormalities EKG: His electrocardiogram this morning shows atrial fibrillation with a heart rate of 127 bpm, bifascicular block. Telemetry reviewed: Atrial fibrillation since 1700 on December 15, 2017, rate is improved today. Assessment and Plan 1. Atrial fibrillation: On the afternoon of December 15, 2017 at around 1700 he went into atrial fibrillation with a rapid heart rate. He seems unaware of this arrhythmia. I suspect he may have had it before, it does go along with his PAT. We need however to treat it and I think we need anticoagulation. That is little bit problematic given his hematuria, however he is now approaching 24 hours in atrial fibrillation I think we need to do it. I recommended that he stay overnight while we start anticoagulation (I will start Eliquis), and we also need to get his heart rate under good control. His heart rate is much better today after receiving diltiazem this morning, but the average is still around 100 at rest. I am going to give him a shorter acting dose of diltiazem this evening (SR preparation) and increase his CD4 tomorrow. 2. Paroxysmal tachycardia: He had runs of what appeared to be atrial tachycardia prior to conversion to atrial fibrillation, atrial fibrillation may have been a consequence of the atrial tachycardia which is a very common mode of initiation of atrial fibrillation. Based on morphology on telemetry I believe the arrhythmia was supraventricular, it was suggestive of a PAT although I cannot exclude a reentrant arrhythmia. He had very frequent premature atrial beats as well. There was one brief run of a different morphology which could be ventricular in origin. His potassium has dropped substantially and although it was still technically normal I agreed that that may be contributory. I would maintain his Lopressor which he has been on for many years, he is also on diltiazem 180 mg daily starting today, which I am going to increase. Other than that I would simply observe to see whether this continues if he returns to sinus rhythm. Prolonged episodes (30 seconds or symptomatic) can be treated with amiodarone but I would not do that at this time. 3. Bifascicular block: He has right bundle branch block and left anterior fascicular block but a normal ME interval and no symptoms to suggest heart block and he has not had heart block on the monitor. During atrial fibrillation is rate is fast suggesting good AV conduction. I would observe closely with addition of diltiazem but that should not affect intraventricular conduction. Thank you for allowing me to participate in his care.
[2017-12-16] MEDS ORDERED: DILTIAZEM SR 60 MG CAP PO SCH (18:00)
[2017-12-16] MEDS: APIXABAN 2.5 MG TAB PO SCH (18:24)
--- NOTE | 2017-12-16 18:41 | Hospitalist Progress Note ---
Hospitalist Progress Note Date of Service Dec 16, 2017. Subjective Pt evaluation today including: conversation w/ patient, conversation w/ family ( and daughter), physical exam, chart review, lab review, review of studies , conversation w/ [employer] consultant (Dr. Mckeon), review of inpatient medication list Pain: None PO Intake: Tolerating PO diet Voiding: powell catheter in place Patient reports feeling well and continues to deny any chest pain, palpitations or shortness of breath in terms of his arrhythmias. He denies any acute complaints. The patient denies fevers, chills, sweats, chest pain, palpitations , claudication, cough, wheezing, shortness of breath, nausea, vomiting, abdominal pain, dysuria, hematuria, urinary retention, paralysis, weakness, numbness and tingling. Additional Comments: See HPI for pertinent positives and negatives. All other systems reviewed and negative. Objective Vital Signs Date Time Temp Pulse Resp B/P (MAP) Pulse Ox O2 Delivery O2 Flow Rate FiO2 12/16/17 16:00 Room Air 12/16/17 15:13 36.5 78 18 133/69 (90) 94 Room Air 12/16/17 11:50 36.4 77 18 126/54 (78) 95 Room Air 12/16/17 09:00 Room Air 12/16/17 06:59 36.5 116 18 126/63 (84) 94 Room Air 12/16/17 04:04 36.7 99 16 147/76 (99) 95 Room Air 12/15/17 23:59 Room Air 12/15/17 23:11 36.7 128 20 145/78 (100) 93 Room Air 12/15/17 19:24 36.6 80 18 146/78 (100) 93 Room Air Physical Exam Notes: General appearance: +Obese. Well-developed, well-nourished, no apparent distress Head: Normocephalic, atraumatic Eyes: Normal inspection, PERRL, EOMI ENT: Normal ENT inspection, hearing grossly normal, pharynx normal Neck: Supple, no JVD, trachea midline Respiratory/Chest: +Decreased breath sounds. Lungs clear to auscultation, no respiratory distress Cardiovascular: +Irregularly irregular, tachy at times. No gallop, no murmur Abdomen/GI: Normal bowel sounds, non-tender, soft Extremities/Musculoskeletal: +RLE greater than LLE due to defect. No calf tenderness, no pedal edema. Neurological/Psych: Alert, normal mood/affect, oriented x 3 Skin: Normal color, warm/dry, no rash Laboratory Results Last 24 Hours Test 12/16/17 06:07 White Blood Count 10.68 K/uL Red Blood Count 3.90 M/uL Hemoglobin 12.4 g/dL Hematocrit 36.1 % Mean Corpuscular Volume 92.6 fL Mean Corpuscular Hemoglobin 31.8 pg Mean Corpuscular Hemoglobin Concent 34.3 g/dl RDW Standard Deviation 46.4 fL RDW Coefficient of Variation 13.9 % Platelet Count 226 K/uL Mean Platelet Volume 9.8 fL Sodium Level 134 mmol/L Potassium Level 3.8 mmol/L Chloride Level 105 mmol/L Carbon Dioxide Level 23 mmol/L Anion Gap 6.0 mmol/L Blood Urea Nitrogen 28 mg/dl Creatinine 1.75 mg/dl Est Creatinine Clear Calc Drug Dose 37.9 ml/min Estimated GFR () 41.1 Estimated GFR (Non- 35.5 BUN/Creatinine Ratio 16.0 Random Glucose 146 mg/dl Calcium Level 7.2 mg/dl Magnesium Level 1.7 mg/dl Diagnostic Results Echocardiogram: Interpretation Summary * Name: MONIKA WAYNE Study Date: 12/16/2017 09:53 AM BP: 169/68 mmHg * Patient Location: [facility]\S\1 HR: 81 * : 1935 (M/d/yyyy) Gender: Male Height: 70 in * Age: 82 yrs Ethnicity: [place] Weight: 215 lb * Ordering Physician: Stephan Mckeon * Performed By: Nell Askew RDCS * * Reason For Study: SVT * BSA: 2.2 m2 * -- Conclusions -- * There is moderate concentric left ventricular hypertrophy. * Left ventricular systolic function is normal. * The right ventricular systolic function is mildly reduced. * The left atrium is mildly dilated. * There is mild mitral regurgitation. * Right ventricular systolic pressure is normal. Procedure Details * A complete two-dimensional transthoracic echocardiogram was performed (2D, M-mode, Doppler and color flow Doppler). * The study was technically difficult. * A contrast injection of Definity was performed to improve assessment of LV function. * Contrast was injected into an intravenous site in the right arm. * One vial of Definity ultrasound contrast was diluted in normal saline to a total volume of 10 ml. A total of '2.5' ml of solution was administered during imaging. * Lot # [id number] of Definity utilized for procedure. * Expiration date 12/02. * The attending nurse who injected the contrast agent was NINI RAMIREZ RN. Left Ventricle * The left ventricle is normal in size. * There is moderate concentric left ventricular hypertrophy. * Ejection Fraction = 55-60%. * Left ventricular systolic function is normal. * The left ventricular wall motion is normal. Right Ventricle * The right ventricle is normal size. * The right ventricular systolic function is mildly reduced. * The right ventricular systolic function is reduced as assessed by tricuspid annular plane systolic excursion (TAPSE) (TAPSE <1.6 cm). Atria * The left atrium is mildly dilated. * Right atrial size is normal. Mitral Valve * The mitral valve is grossly normal. * There is mild mitral regurgitation. Tricuspid Valve * The tricuspid valve is not well visualized, but is grossly normal. * There is mild tricuspid regurgitation. * Right ventricular systolic pressure is normal. Aortic Valve * The aortic valve is normal in structure and function. * No hemodynamically significant valvular aortic stenosis. * There is no significant aortic regurgitation. Pulmonic Valve * The pulmonic valve is not well visualized. Pericardium/Pleural * There is no pericardial effusion. 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 Pt afebrile, VSS on arrival. CT of abdomen/pelvis shows marked bladder distention consistent w/bladder outlet obstruction, mild hydronephrosis, fecal impaction of rectum and low sigmoid, and mild nonobstructive ileus. CXR shows minimal interstitial infiltrate of left base superimposed on chronic interstitial change, slightly progressive superior mediastinal fullness and unchanged nodularity of left upper lobe. EKG no ischemic changes. Creatinine significantly elevated above baseline at 12.6, BUN 137. Potassium 6.8. Sodium 126. UA positive for 3+ blood. Acute renal failure on CKD stage III, s/p right nephrectomy, bladder outlet obstruction w/urinary retention--resolving -Admit to telemetry. Pt now in a-fib, at times SVT up to 160 -ARF likely secondary to bladder outlet obstruction/urinary retention and hydro -Consult nephrology, appreciate recs: Resume spironolactone. F/u in 3-4 weeks. Ok to discharge from nephrology standpoint -Calcium low at 7.6, vitamin D low at 21.2 -PTH elevated at 139.8 -Ergocalciferol 05545 PO weekly x 12 weeks per nephro -Consult urology, appreciate recs: Hematuria resolved. UC&S is negative. Cytology showing reactive urothelial cells. No high grade urothelial carcinoma seen. Recommend the pt have an outpatient cysto for further evaluation of gross hematuria and HERNANDEZ. Will schedule outpt f/u. to sign off at this time. -PSA WNL -Creatinine 1.75 on 12/16, down from 2.4 -Urine culture negative -Urine cytology shows acute inflammation/reactive cells, no carcinoma PAT, new onset a-fib -Cardiology consulted, appreciate recs: Spoke with Dr. Mckeon. Now in a-fib since yesterday afternoon, recommend anticoagulation. Due to recent hematuria, would monitor overnight. Will also increase diltiazem for better rate control. -Echo shows EF 55-60%. No WMA. Left atrium mildly dilated. Mild mitral regurgitation. -Eliquis 2.5 mg PO BID. Copay currently would be $75/month. Will provide free month card, cardiology office can provide free samples to give more time to figure out how to lower copay -Diltiazem increased to 240 mg PO qd -Continue Lopressor 100 mg PO BID Hyperkalemia--resolved -Potassium remains WNL -Given Kayexalate 15 gm in ED, then another 30 gm by nephro on 12/13 Hyponatremia--stable -Sodium remains stable HTN, HLD--stable -Continue Lopressor 100 mg PO BID and Lipitor 10 mg PO qd -Diltiazem increased as above Diastolic dysfunction, peripheral edema--stable -Spironolactone resumed per nephro BPH, hematuria -Consult urology as above -Flomax and Proscar as above -Hematuria resolved -Hgb remains stable DVT prophylaxis -Eliquis -AIYANA james and SCDs Code Status -Level V, DO NOT RESUSCITATE Dispo -Lives at home w/, uses walker and cane to walk -2 recent falls due to weakness, PT/OT evaluate and treat -Case management consulted for discharge planning -OT recommends inpatient rehab. PT juan danielal recommends home w/home PT -Pt not agreeable to rehab Saw patient in the morning, addressed concerns. Returned to bedside later to update family. Spoke with [employer] consultant regarding new arrhythmia. Total time spent in direct patient care 75 minutes
[2017-12-16 19:17] VITALS: BP 138/72; PULSE 126; TEMP 36.6; O2SAT 93
[2017-12-16] MEDS: TAMSULOSIN HCL 0.4 MG CAP PO SCH (21:03)
[2017-12-16] MEDS: ATORVASTATIN 10 MG TAB PO SCH (21:03)
[2017-12-16 23:56] VITALS: BP 127/81; PULSE 104; TEMP 36.6; O2SAT 93
[2017-12-17 03:16] VITALS: BP 130/74; PULSE 91; TEMP 36.4; O2SAT 92
[2017-12-17] MEDS: APIXABAN 2.5 MG TAB PO SCH (05:53)
[2017-12-17 07:04] VITALS: BP 129/78; PULSE 119; TEMP 36.5; O2SAT 95
[2017-12-17 07:43] LABS: HEMATOCRIT 35.3 % (42-52); HEMOGLOBIN 12.5 g/dL (14.0-18.0); MEAN CELL VOLUME 91.7 fL (80-100); MEAN CORPUSCULAR HEMOGLOBIN 32.5 pg (25-34); MEAN CORPUSCULAR HGB CONC 35.4 g/dl (32-36); MEAN PLATELET VOLUME 9.6 fL (7.4-10.4); PLATELET COUNT 241 K/uL (130-400); RED CELL DISTRIBUTION WIDTH CV 13.8 % (11.5-14.5); RED CELL DISTRIBUTION WIDTH SD 45.2 fL (36.4-46.3); WHITE BLOOD COUNT 12.24 K/uL (4.8-10.8)
[2017-12-17 08:19] LABS: CALCIUM 7.7 mg/dl (8.5-10.1); CREATININE 1.82 mg/dl (0.60-1.40); POTASSIUM 3.7 mmol/L (3.5-5.1)
[2017-12-17] MEDS: METOPROLOL TARTRATE 100 MG TAB PO SCH (08:55)
[2017-12-17] MEDS: SPIRONOLACTONE 25 MG TAB PO SCH (08:56)
[2017-12-17] MEDS: FINASTERIDE 5 MG TAB PO SCH (08:56)
[2017-12-17] MEDS: CHOLECALCIFEROL 1000 INTER.UNIT TAB PO SCH (08:56)
[2017-12-17] MEDS ORDERED: DILTIAZEM HCL 240 MG CAPCR PO SCH (09:00)
[2017-12-17] MEDS ORDERED: ERGO500011 PO (10:20)
[2017-12-17] MEDS ORDERED: ELQ25 PO (10:20)
[2017-12-17] MEDS ORDERED: DLTCD/240 PO (10:20)
--- NOTE | 2017-12-17 10:34 | Discharge Instructions ---
Discharge Instructions Date of Service Dec 17, 2017. Admission Reason for Admission: Acute Renal Failure, Hyperkalemia Discharge Discharge Diagnosis / Problem: Acute renal failure, hyperkalemia, atrial fibrillation Discharge Goals Goal(s): Decrease discomfort, Improve function, Diagnostic testing, Therapeutic intervention Activity Recommendations Activity Limitations: resume your previous activity (as tolerated) . Instructions / Follow-Up Instructions / Follow-Up You were admitted to the hospital with acute kidney failure. This was due to severe urinary retention due to bladder outlet obstruction. This obstruction was relieved by placing a Kaur catheter, and your kidney function then began to improve. Due to the kidney failure, you were also found to have very elevated potassium levels. This was corrected with a reversal agent and IV fluids. Your electrolytes and kidney function are now back to normal. Due your hospital stay you developed a rapid and irregular heart rhythm called atrial fibrillation. Your medications were changed to help better control/slow your heart rate. You have also been started on a blood thinner called Eliquis, as atrial fibrillation increases your risk of stroke due to clot. As you recently had hematuria (blood in the urine), you will need to monitor your urine closely for more bleeding. You are now medically stable for discharge. Medications: *STOP amlodipine. *Please take diltiazem 240 mg daily. This is replacing your amlodipine and will control your blood pressure and heart rate. *Please take Eliquis (apixaban) 2.5 mg twice a day. This is a blood thinner to help reduce your stroke risk due to your atrial fibrillation. You have been given a card to receive your first month free. After that, please call the number on card to inquire about getting Eliquis for a $10 copay. Cardiology can assist with this. *Please take Flomax (tamsulosin) 0.4 mg at bedtime and Proscar (finasteride) 5 mg daily. These medications are to help you urinate and help prevent future urinary retention. *Your vitamin D levels were low despite the supplement you take at home. Please take ergocalciferol 50,000 units once a week (on Tuesdays) for a total of 12 weeks per nephrology recommendations. A prescription for the first 4 weeks has been provided, and nephrology can refill this for you. *Continue your other home medications as prescribed. Follow up: *Dr. Mckeon will schedule you a cardiology follow up for next week. You will receive a call when this is scheduled. Please also keep the cardiology appointment below scheduled for the end of the month. *Please follow up with Dr. Villafana on December 21 at 10:20 am. *Please follow up with Dr. Chavez of urology on December 30 at 8: 20 am. Your catheter will be removed at that time. *Please follow up with Dr. Dalton of nephrology on January 12 at 2: 45 pm. *In addition to next week, please also follow up with Price Clark PA-C of cardiology on January 12 at 3:45 pm. This is located in the same building as nephrology. Please seek medical attention if you experience fevers, chills, sweats, dizziness/lightheadedness, loss of consciousness, chest pain, shortness of breath, nausea, vomiting, numbness or tingling. Current Hospital Diet Patient's current hospital diet: Renal Diet Discharge Diet Recommended Diet: AHA Diet (Heart Healthy) Pending Studies Studies pending at discharge: no Medical Emergencies . Who to Call and When: Medical Emergencies: If at any time you feel your situation is an emergency, please call 911 immediately. . Non-Emergent Contact Non-Emergency issues call your: Primary Care Provider, Furnace Door Tender, Vegetable Grower, Urologist Call Non-Emergent contact if: you have a fever, you have any medication questions . Past History Medical & Surgical History: (1) Atrial fibrillation with rapid ventricular response (2) Acute renal failure (3) Hyperkalemia (4) Bladder outflow obstruction . "Provider Documentation" section prepared by Kendy Rees. .
[2017-12-17 10:38] VITALS: BP 129/78; PULSE 119; TEMP 36.5; O2SAT 95
--- NOTE | 2017-12-17 11:13 | Cardiology Follow-Up ---
Subjective Date of Service: Dec 17, 2017. Pt evaluation today including: conversation w/ patient, physical exam, lab review, review of studies, review of inpatient medication list, conversation w/ attending History of Present Illness This is a very pleasant 82-year-old gentleman who has a history of hypertension , hyperlipidemia and reported diastolic dysfunction who presented with weakness and fatigue and was in acute renal failure and hyperkalemic. From the cardiovascular standpoint he has not had any difficulty that he is aware of, he denies symptoms of palpitations in the past, he believes he had a stress test on a bicycle sometime in the early 1980s but does not think he has had any cardiac studies since. He has been in the hospital since December 13, 2017 and has been on telemetry. He does have conduction abnormalities on premature atrial beats but was not having much in the way of arrhythmias until yesterday when he was observed to have runs of wide-complex tachycardia. He was unaware of this, he denies having palpitations, lightheadedness or dizziness. For the most part the wide-complex rhythm appeared to be atrial rhythm with a conduction pattern very similar to his intrinsic which is wide. We therefore plan to change his calcium nkechi to diltiazem from amlodipine, however that started yesterday as he already had amlodipine the day before. In the evening of December 15, 2017 at around 1700 he went into atrial fibrillation with a somewhat fast heart rate. His heart rate was still fast yesterday therefore increased his diltiazem 240 mg daily starting this morning but gave him a short acting dose last evening. He does not feel his arrhythmia, he feels well and is anxious to go home. Social History Smoking Status: Former Smoker Review of Systems Respiratory: No shortness of breath Cardiac: No chest pain Medications Cardiovascular: Item Value Date Time Diltiazem HCl 240 mg 12/17/17 0900 (Cardizem Cd Cap) QAM/PO 12/17/17 0856 Apixaban 2.5 mg 12/16/17 1800 (Eliquis Tab) BID@0600,1800/PO 12/17/17 0553 Spironolactone 25 mg 12/15/17 0930 (Aldactone Tab) QAM/PO 12/17/17 0856 Atorvastatin 10 mg 12/13/17 2100 Calcium HS/PO 12/16/17 210 (Lipitor Tab) Metoprolol 100 mg 12/13/17 2100 Tartrate BID/PO 12/17/17 0855 (Lopressor Tab) Objective Vital Signs Past 12 Hours Date Time Temp Pulse Resp B/P (MAP) Pulse Ox O2 Delivery O2 Flow Rate FiO2 12/17/17 10:38 36.5 119 17 95 Room Air 12/17/17 09:14 Room Air 12/17/17 07:04 36.5 119 17 129/78 (95) 95 Room Air 12/17/17 03:16 36.4 91 15 130/74 (92) 92 Room Air 12/17/17 00:00 Room Air 12/16/17 23:56 36.6 104 20 127/81 (96) 93 Room Air Last Recorded Weight-Kilograms: 96.600 Physical Exam Constitutional: General Apperance: overweight Level of Distress: NAD Lungs: Respiratory effort: no dyspnea, good air movement Auscultation: breath sounds normal, no wheezing Cardiovascular: Heart Auscultation: no murmurs, no rubs, no gallops, irregular rate rhythm Peripheral Pulses: Bruits: none appreciated Extremities: no edema Data Laboratory Results: Last 24 Hours Test 12/17/17 07:20 White Blood Count 12.24 K/uL Red Blood Count 3.85 M/uL Hemoglobin 12.5 g/dL Hematocrit 35.3 % Mean Corpuscular Volume 91.7 fL Mean Corpuscular Hemoglobin 32.5 pg Mean Corpuscular Hemoglobin Concent 35.4 g/dl RDW Standard Deviation 45.2 fL RDW Coefficient of Variation 13.8 % Platelet Count 241 K/uL Mean Platelet Volume 9.6 fL Sodium Level 134 mmol/L Potassium Level 3.7 mmol/L Chloride Level 104 mmol/L Carbon Dioxide Level 23 mmol/L Anion Gap 8.0 mmol/L Blood Urea Nitrogen 31 mg/dl Creatinine 1.82 mg/dl Est Creatinine Clear Calc Drug Dose 36.5 ml/min Estimated GFR () 39.2 Estimated GFR (Non- 33.8 BUN/Creatinine Ratio 17.3 Random Glucose 132 mg/dl Calcium Level 7.7 mg/dl Magnesium Level 1.8 mg/dl Telemetry reviewed: Atrial fibrillation, heart rate averaging around 100 but faster at times. Quite irregular with large heart rate variations. Very little change in heart rate compared to yesterday Assessment and Plan 1. Atrial fibrillation: On the afternoon of December 15, 2017 at around 1700 he went into atrial fibrillation with a rapid heart rate. He seems unaware of this arrhythmia. I suspect he may have had it before, it does go along with his PAT. We need however to treat it and I think we need anticoagulation. That is little bit problematic given his hematuria, however he seems to be tolerating Eliquis well without obvious hematuria. His heart rate remains somewhat elevated after receiving diltiazem this morning, and the average is still around 100 at rest. This is probably acceptable to go home, on his current regimen. I will see him in the office next week and if he remains in atrial fibrillation we should consider cardioversion since he was observed to go into it and has been anticoagulated since shortly after conversion to atrial fibrillation. 2. Paroxysmal tachycardia: He had runs of what appeared to be atrial tachycardia prior to conversion to atrial fibrillation, atrial fibrillation may have been a consequence of the atrial tachycardia which is a very common mode of initiation of atrial fibrillation. Based on morphology on telemetry I believe the arrhythmia was supraventricular, it was suggestive of a PAT although I cannot exclude a reentrant arrhythmia. He had very frequent premature atrial beats as well. There was one brief run of a different morphology which could be ventricular in origin. His potassium has dropped substantially and although it was still technically normal I agreed that that may be contributory. I would maintain his Lopressor which he has been on for many years, he is also on diltiazem 240 mg daily. Other than that I would simply observe to see whether this continues if he returns to sinus rhythm. Prolonged episodes (30 seconds or symptomatic) can be treated with amiodarone but I would not do that at this time. 3. Bifascicular block: He has right bundle branch block and left anterior fascicular block but a normal TN interval and no symptoms to suggest heart block and he has not had heart block on the monitor. During atrial fibrillation is rate is fast suggesting good AV conduction. I would observe closely with addition of diltiazem but that should not affect intraventricular conduction. Thank you for allowing me to participate in his care.
--- NOTE | 2017-12-17 15:55 | Discharge Summary ---
Discharge Summary Date of Service Dec 17, 2017. 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 A dose lowering technique was utilized adhering to the principles of ALARA. COMPARISON STUDY: 01/11/2017 FINDINGS: Chronic bibasilar pleural thickening. Several old basilar rib fractures. Configuration of liver is unremarkable. Gallbladder is negative for distention. There has been a right nephrectomy. Interval development of mild left hydroureteronephrosis. Considerable bladder distention. This appearance is consistent with that of bladder on obstruction. Moderate rectal fecal impaction. Mild prosthetic enlargement. Nonobstructive bowel pattern. Mild nonobstructive ileus. Degenerative changes as well as findings of ankylosing spondylitis involving the bony structures. Patient is status post left hip pinning. IMPRESSION: 1. Marked bladder distention consistent with bladder outlet obstruction. 2. Mild left hydroureteronephrosis apparently secondary to the bladder distention. 3. Fecal impaction of the rectum and low sigmoid. 4. Operative changes consistent with a prior right nephrectomy . 5. Mild nonobstructive ileus. Echocardiogram: Interpretation Summary * Name: MONIKA WAYNE Study Date: 12/16/2017 09:53 AM BP: 169/68 mmHg * Patient Location: .2T\S\S233\S\1 HR: 81 * : 1935 (M/d/yyyy) Gender: Male Height: 70 in * Age: 82 yrs Ethnicity: CA Weight: 215 lb * Ordering Physician: Stephan Mckeon * Performed By: Nell Askew, [facility] * * Reason For Study: SVT * BSA: 2.2 m2 * -- Conclusions -- * There is moderate concentric left ventricular hypertrophy. * Left ventricular systolic function is normal. * The right ventricular systolic function is mildly reduced. * The left atrium is mildly dilated. * There is mild mitral regurgitation. * Right ventricular systolic pressure is normal. Procedure Details * A complete two-dimensional transthoracic echocardiogram was performed (2D, M-mode, Doppler and color flow Doppler). * The study was technically difficult. * A contrast injection of Definity was performed to improve assessment of LV function. * Contrast was injected into an intravenous site in the right arm. * One vial of Definity ultrasound contrast was diluted in normal saline to a total volume of 10 ml. A total of '2.5' ml of solution was administered during imaging. * Lot # [id number] of Definity utilized for procedure. * Expiration date 12/02. * The attending nurse who injected the contrast agent was NINI RAMIREZ RN. Left Ventricle * The left ventricle is normal in size. * There is moderate concentric left ventricular hypertrophy. * Ejection Fraction = 55-60%. * Left ventricular systolic function is normal. * The left ventricular wall motion is normal. Right Ventricle * The right ventricle is normal size. * The right ventricular systolic function is mildly reduced. * The right ventricular systolic function is reduced as assessed by tricuspid annular plane systolic excursion (TAPSE) (TAPSE <1.6 cm). Atria * The left atrium is mildly dilated. * Right atrial size is normal. Mitral Valve * The mitral valve is grossly normal. * There is mild mitral regurgitation. Tricuspid Valve * The tricuspid valve is not well visualized, but is grossly normal. * There is mild tricuspid regurgitation. * Right ventricular systolic pressure is normal. Aortic Valve * The aortic valve is normal in structure and function. * No hemodynamically significant valvular aortic stenosis. * There is no significant aortic regurgitation. Pulmonic Valve * The pulmonic valve is not well visualized. Pericardium/Pleural * There is no pericardial effusion. Consultations: Nephrology Urology Cardiology Medication Reconciliation New Medications: Apixaban (Eliquis) 2.5 Mg Tab 2.5 MG PO BID for 30 Days, #60 TAB Diltiazem Hcl (Diltiazem Cd) 240 Mg Capcr 240 MG PO QAM for 30 Days, #30 CAP Ergocalciferol (Vitamin D 77732 Unit) 50,000 Unit Cap 97039 INTERUNIT PO Q7D for 30 Days, #4 CAP Take on Tuesdays Finasteride (Finasteride) 5 Mg Tab 5 MG PO QAM, #30 TAB 1 Refill Tamsulosin HCl (Tamsulosin HCl) 0.4 Mg Cap 0.4 MG PO HS, #30 CAP 1 Refill Continued Medications: Atorvastatin (Lipitor) 10 Mg Tab 10 MG PO HS Cholecalciferol (Vitamin D3) 1,000 Unit Tab 1000 UNITS PO DAILY for 90 Days, TAB 3 Refills Metoprolol Tartrate (Lopressor) (Lopressor) 100 Mg Tab 100 MG PO BID Spironolactone (Aldactone) 25 Mg Tab 25 MG PO DAILY, TAB Discontinued Medications: Amlodipine Besylate (Norvasc) 10 Mg Tab 10 MG PO DAILY, TAB Discharge Exam Patient reports feeling, continues to deny any chest pain, palpitations, shortness of breath, dizziness or lightheadedness. Does not seem to be aware at all of his arrhythmia or rapid rate. He is very eager to be discharged. The patient denies fevers, chills, sweats, chest pain, palpitations, claudication, cough, wheezing, shortness of breath, nausea, vomiting, abdominal pain, dysuria, hematuria, urinary retention, paralysis, weakness, numbness and tingling. Constitutional: No fever, No chills, No sweats Eyes: No worsening of vision, No eye pain, No diplopia ENT: No hearing loss, No nasal symptoms, No trouble swallowing Respiratory: No cough, No wheezing, No shortness of breath Cardiovascular: No chest pain, No claudication, No palpitations Abdomen: No pain, No nausea, No vomiting Musculoskeletal: No joint pain, No muscle pain, No swelling Genitourinary - Male: No dysuria, No urinary retention, No hematuria Neurologic: No paralysis, No weakness, No numbness/tingling Integumentary: No rash, No itch, No color change General appearance: +Obese. Well-developed, well-nourished, no apparent distress Head: Normocephalic, atraumatic Eyes: Normal inspection, PERRL, EOMI ENT: Normal ENT inspection, hearing grossly normal, pharynx normal Neck: Supple, no JVD, trachea midline Respiratory/Chest: +Decreased breath sounds. Lungs clear to auscultation, no respiratory distress Cardiovascular: +Irregularly irregular, tachy at times. No gallop, no murmur Abdomen/GI: Normal bowel sounds, non-tender, soft Extremities/Musculoskeletal: +RLE greater than LLE due to defect. No calf tenderness, no pedal edema. 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 Pt afebrile, VSS on arrival. CT of abdomen/pelvis shows marked bladder distention consistent w/bladder outlet obstruction, mild hydronephrosis, fecal impaction of rectum and low sigmoid, and mild nonobstructive ileus. CXR shows minimal interstitial infiltrate of left base superimposed on chronic interstitial change, slightly progressive superior mediastinal fullness and unchanged nodularity of left upper lobe. EKG no ischemic changes. Creatinine significantly elevated above baseline at 12.6, BUN 137. Potassium 6.8. Sodium 126. UA positive for 3+ blood. Acute renal failure on CKD stage III, s/p right nephrectomy, bladder outlet obstruction w/urinary retention--resolving -Admit to telemetry. Pt remains in a-fib with HR ranging from 80s to 120s with some short bursts up to 160s. -ARF likely secondary to bladder outlet obstruction/urinary retention and hydro -Consult nephrology, appreciate recs: Resume spironolactone. F/u in 3-4 weeks. Ok to discharge from nephrology standpoint -Calcium low at 7.6, vitamin D low at 21.2 -PTH elevated at 139.8 -Ergocalciferol 27776 PO weekly x 12 weeks per nephro -Consult urology, appreciate recs: Hematuria resolved. UC&S is negative. Cytology showing reactive urothelial cells. No high grade urothelial carcinoma seen. Recommend the pt have an outpatient cysto for further evaluation of gross hematuria and HERNANDEZ. Will schedule outpt f/u. to sign off at this time. -PSA WNL -Creatinine 1.82 on 12/17, stable -Urine culture negative -Urine cytology shows acute inflammation/reactive cells, no carcinoma PAT, new onset a-fib with RVR--improving -Cardiology consulted, appreciate recs: Spoke with Dr. Mckeon. Rates are improved and can be managed as an outpatient. Will follow up next week and can consider cardioversion at that time. -Echo shows EF 55-60%. No WMA. Left atrium mildly dilated. Mild mitral regurgitation. -Eliquis 2.5 mg PO BID due to age/creatinine. Copay currently would be $75/ month. Will provide free month card, cardiology office can provide free samples to give more time to figure out how to lower copay as vast majority of pts can get $10/month copay directly from Eliquis -Diltiazem increased to 240 mg PO qd -Continue Lopressor 100 mg PO BID Hyperkalemia--resolved -Potassium remains WNL -Given Kayexalate 15 gm in ED, then another 30 gm by nephro on 12/13 Hyponatremia--stable -Sodium remains stable HTN, HLD--stable -Continue Lopressor 100 mg PO BID and Lipitor 10 mg PO qd -Diltiazem increased as above Diastolic dysfunction, peripheral edema--stable -Spironolactone resumed per nephro BPH, hematuria -Consult urology as above -Flomax and Proscar as above -Hematuria resolved, will need to monitor this closely given Eliquis -Hgb remains stable DVT prophylaxis -Eliquis -AIYANA casase and SCDs Code Status -Level V, DO NOT RESUSCITATE Dispo -Lives at home w/, uses walker and cane to walk -2 recent falls due to weakness, PT/OT evaluate and treat -Case management consulted for discharge planning -OT recommends inpatient rehab. PT eval recommends home w/home PT -Pt not agreeable to rehab, agreeable to home health Total Time Spent: Greater than 30 minutes This includes examination of the patient, discharge planning, medication reconciliation, and communication with other providers. Discharge Instructions Please refer to the electronic Patient Visit Report (Discharge Instructions) for additional information. Follow-Up PCP Cardiology Urology Nephrology Additional Copies To Elly Villafana MD
[2017-12-24] MEDS ORDERED: TRAM-10 PO (06:43)
[2017-12-24] MEDS ORDERED: NYST80OI TOP (06:43)
--- NOTE | 2017-12-27 12:58 | Medical Consult ---
Consultation Note Date of Service Dec 27, 2017. Consultation Note Attending: Dr. Bryan This patient was admitted to the telemetry unit for acute renal failure with a creatinine over 10 and in ICU consult was placed. Consult was for placement of a dialysis catheter for urgent dialysis per Dr. Dalton. I saw the patient in room 233 and he indicated to me that he did not want dialysis that evening and wanted to speak to his about further care. I discussed this with Kendy Rees PA-C as well as Dr. Madrigal. I was asked to speak to the patient's by Dr. Madrigal again to confirm no dialysis that evening. I did call the patient's and all parties agreed that we would continue with conservative treatment overnight and reassess in the morning. The following morning the patient's creatinine was improved and he affirmed that he did not desire to have dialysis. 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 I again spoke with Dr. Madrigal and Kendy Rees who indicated that they will cancel the consult. Please do not bill the patient for this consult as we did not see or examine the patient and were not directly involved in this patient's care.
== END 2017-12-17 11:48 | disposition home health service (06) | DRG 683 ==
LOC: EDBD 07:47 → C.EDB 07:48 → C.2T 11:10 → ENRESERV 11:45
PROVIDERS: ADMIT Hospitalist; ATTEND Hospitalist
DX: N17.9 Acute kidney failure, unspecified (principal); E87.1 Hypo-osmolality and hyponatremia; I47.1 Supraventricular tachycardia; E87.2 Acidosis; N13.8 Other obstructive and reflux uropathy; E87.5 Hyperkalemia; N32.0 Bladder-neck obstruction; R33.8 Other retention of urine; N13.39 Other hydronephrosis; I48.91 Unspecified atrial fibrillation; R31.0 Gross hematuria; N18.3 Chronic kidney disease, stage 3 (moderate); N40.1 Benign prostatic hyperplasia with lower urinary tract symptoms; E78.00 Pure hypercholesterolemia, unspecified; E66.3 Overweight; Z79.899 Other long term (current) drug therapy; Z66 Do not resuscitate; Z91.81 History of falling; Z90.5 Acquired absence of kidney; Z68.30 Body mass index [BMI] 30.0-30.9, adult; Z87.891 Personal history of nicotine dependence; Z88.0 Allergy status to penicillin; Z88.1 Allergy status to other antibiotic agents; Z88.2 Allergy status to sulfonamides

== ENCOUNTER → 2017-12-24 | Day surgery (SDC) | payer OTHER ==
[~2017-12-24] VITALS: Ht 177.8 cm; Wt 96.0 kg
[~2017-12-24] MED LIST changes: -AMLO5TAB3 PO; +CHOL1000 PO; +DLTCD/240 PO; +ELQ25 PO; +ERGO500011 PO; +FLM4 PO; -LEVO-366 PO; +LIDOCAINE HCL 2% 2 ML VIAL (20MG/ML) ONE; +NYST80OI TOP; -POTA-335 PO; +PROPOFOL IV EMULSION 10 MG/ML 20 ML VIAL ONE; +PRS5 PO; +SPIR25TA PO; +TRAM-10 PO; -VITAMIN D PO
[2017-12-24 07:00] VITALS: BP 160/94; PULSE 115; TEMP 37.1; O2SAT 97; Ht 177.8 cm; Wt 96.0 kg
[2017-12-24 07:55] VITALS: BP 148/90; PULSE 120; O2SAT 96
--- NOTE | 2017-12-24 07:59 | History & Physical Bridge Note ---
H&P Re-Evaluation Bridge Note: I have examined the patient, reviewed the History & Physical and in the interval since the performance of the History & Physical I have noted the following changes of clinical significance: No changes noted. I reviewed the indications, procedure, risks and alternatives seen. Consent obtained.
[2017-12-24 08:00] VITALS: BP 150/86; PULSE 117; O2SAT 96
[2017-12-24 08:05] VITALS: BP 112/65; PULSE 40; O2SAT 96
--- NOTE | 2017-12-24 08:05 | Cardioversion ---
Electricial Cardioversion Rpt Date of Service: December 24, 2017 Electrical Cardioversion Rprt The patient was brought to the laboratory being NPO after midnight and was identified in the laboratory, connected to the recording apparatus including electrocardiographic monitoring, noninvasive blood pressure monitoring and pulse oximetry. Anteroposterior patch electrodes were placed. The patient was anesthetized by the anesthesia department. Once adequate anesthesia was obtained a synchronized biphasic shock was delivered using 200 J with conversion to a sinus rhythm. The patient awoke from the anesthetic without sequela, will be observed briefly and then discharged.
[2017-12-24 08:10] VITALS: BP 141/62; PULSE 70; O2SAT 96
--- NOTE | 2017-12-24 09:05 | Discharge Instructions ---
Discharge Instructions Date of Service Dec 24, 2017. Admission Reason for Admission: Atrial fibrillation Discharge Discharge Diagnosis / Problem: Electrical cardioversion Discharge Goals Goal(s): Improve disease control Activity Recommendations Activity Limitations: per Instructions/Follow-up section . Instructions / Follow-Up Instructions / Follow-Up ACTIVITY RECOMMENDATIONS: * May resume driving tomorrow. SPECIAL CARE: * May apply burn ointment for skin irritation. * Please contact physician for any lightheadedness, dizziness or palpitations. Current Hospital Diet Patient's current hospital diet: AHA Diet (Heart Healthy) Discharge Diet Recommended Diet: AHA Diet (Heart Healthy) Pending Studies Studies pending at discharge: no Medical Emergencies . Who to Call and When: Medical Emergencies: If at any time you feel your situation is an emergency, please call 911 immediately. . Non-Emergent Contact Non-Emergency issues call your: Primary Care Provider . . "Provider Documentation" section prepared by Stephan Mckeon. .
[2017-12-24 09:14] VITALS: BP 146/80; PULSE 76; O2SAT 95
--- NOTE | 2017-12-24 10:31 | Anesthesiology Progress Note ---
Anesthesia Post Op Note Date & Time Dec 24, 2017 at 10:30 Vital Signs Pain Intensity: 0 Vital Signs Past 12 Hours Date Time Temp Pulse Resp B/P (MAP) Pulse Ox O2 Delivery O2 Flow Rate FiO2 12/24/17 09:14 76 16 140/70 (93) 95 Room Air 146/80 (102) 12/24/17 09:00 76 16 146/70 (95) 95 Room Air 12/24/17 08:44 70 16 120/70 (87) 95 Room Air 12/24/17 08:34 70 16 131/70 (90) 95 Room Air 12/24/17 08:24 70 16 125/70 (88) 95 Room Air 12/24/17 08:14 74 16 134/67 (89) 95 Room Air 12/24/17 08:10 70 18 141/62 96 Nasal Cannula 4 12/24/17 08:05 40 18 112/65 96 Nasal Cannula 4 12/24/17 08:00 117 18 150/86 96 Nasal Cannula 4 12/24/17 07:55 120 18 148/90 96 Nasal Cannula 4 12/24/17 07:00 37.1 115 18 160/94 (116) 97 Room Air Notes Mental Status: alert / awake / arousable, participated in evaluation Pt Amnestic to Procedure: Yes Nausea / Vomiting: adequately controlled Pain: adequately controlled Airway Patency, RR, SpO2: stable & adequate BP & HR: stable & adequate Hydration State: stable & adequate Anesthetic Complications: no major complications apparent
== END ==
LOC: C.CATH 06:18
PROVIDERS: ATTEND Internal Medicine Cardiovascular Disease
DX: I48.0 Paroxysmal atrial fibrillation (principal); I47.1 Supraventricular tachycardia; I12.9 Hypertensive chronic kidney disease with stage 1 through stage 4 chronic kidney disease, or unspecified chronic kidney disease; I45.2 Bifascicular block; I10 Essential (primary) hypertension; E78.5 Hyperlipidemia, unspecified; F43.21 Adjustment disorder with depressed mood; J45.909 Unspecified asthma, uncomplicated; N18.3 Chronic kidney disease, stage 3 (moderate); M19.90 Unspecified osteoarthritis, unspecified site; I87.2 Venous insufficiency (chronic) (peripheral); E55.9 Vitamin D deficiency, unspecified; Z79.01 Long term (current) use of anticoagulants; Z87.891 Personal history of nicotine dependence; Z79.899 Other long term (current) drug therapy